=== PATIENT | female | born 1970 | race Caucasian/White ===

== ENCOUNTER → 2019-09-09 11:30 | Outpatient (BNVA) | payer BC, SELFPAY | PROVIDERS: Family Provider Nurse Practitioner Family; PCP Nurse Practitioner Family; Visit Provider Nurse Practitioner Family | DX: I10 Essential (primary) hypertension (principal); R53.83 Other fatigue; E78.2 Mixed hyperlipidemia; Z79.899 Other long term (current) drug therapy; D64.9 Anemia, unspecified; E55.9 Vitamin D deficiency, unspecified | CPT/HCPCS: 80053; 80061; 81001; 82607; 82728; 83036; 83540; 83735; 84439; 84443; 84481; 85025 ==

== ENCOUNTER → 2020-06-24 15:16 | Outpatient (BNVA) | payer BC, SELFPAY | PROVIDERS: Family Provider Nurse Practitioner Family; PCP Nurse Practitioner Family; Visit Provider Nurse Practitioner Family | DX: Z11.59 Encounter for screening for other viral diseases (principal) | CPT/HCPCS: 87635 ==

== ENCOUNTER → 2021-07-05 09:48 | Outpatient (BNVA) | payer SELFPAY | PROVIDERS: Family Provider Nurse Practitioner Family; PCP Nurse Practitioner Family; Visit Provider Family Medicine | DX: R68.89 Other general symptoms and signs (principal); Z20.822 Contact with and (suspected) exposure to COVID-19 | CPT/HCPCS: 87400; 87635 ==

== ENCOUNTER 2021-08-28 12:07 | Emergency (ER) | payer SELFPAY ==
[2021-08-28 12:14] VITALS: BP 160/99; PULSE 79; RESP 18; TEMP 36.6; O2SAT 98; BMI 33.5
--- NOTE | 2021-08-28 12:34 | XRR_ITS ---
PROCEDURE INFORMATION: Exam: XR Chest Exam date and time: 08/28/2021 12:34 PM Age: 51 years old Clinical indication: Chest pressure; Chest pain TECHNIQUE: Imaging protocol: XR of the chest. Views: 1 view. COMPARISON: CR Chest 1 [place] [id number] 05/15/2016 10:13 PM FINDINGS: Lungs: No pulmonary vascular congestion, pulmonary edema or pneumonia. Pleural spaces: No pleural effusion or pneumothorax. Heart/Mediastinum: The cardiac silhouette is not enlarged. The mediastinal contours are normal. Bones/joints: There is a curvature of the thoracic spine convex to the right. Soft tissues: Small bilateral epicardial fat pads. XR/XR chest 1V portable [id number] IMPRESSION: No acute finding.
--- NOTE | 2021-08-28 12:34 | ECG_ITS ---
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 Measurements Intervals [place] Rate: 72 P: 75 [place]: 156 QRS: 64 QRSD: 89 T: 68 QT: 378 QTc: 415 Interpretive Statements SINUS RHYTHM LOW QRS VOLTAGE [QRS DEFLECTION < 0.5/1.0 mV IN LIMB/CHEST LEADS] No previous ECG available for comparison Electronically Signed On 08-28-2021 20:21:02 HOME RESTORATION SERVICE CLEANER by Lyssa Faust M.D. [id number]
[2021-08-28 12:59] VITALS: BP 159/101; PULSE 68; PULSE 69; RESP 20; O2SAT 97
--- NOTE | 2021-08-28 12:59 | W.ED.CHESTPA ---
HPI - Chest Pain General: Chief Complaint: Chest Pain Stated Complaint: HBP, Body aches all over, dizziness Time Seen by Provider: 08/28/21 12:33 Source: patient Mode of arrival: ambulatory Limitations: no limitations History of Present Illness: HPI narrative: 51-year-old female complaining of intermittent chest pain for 1 month: Sometimes radiating through to her back, sharp, worse with inspiration. Her blood pressures have been running higher than usual over the past week as well. Subjective body aches, fever, dizziness for the past 5 to 7 days. No known sick contacts. Has been vaccinated for Covid. complaint: chest pain Onset (ago): month(s) Timing of current episode: episodic Associated symptoms: Reports fever(s); Deny dyspnea, nausea, palpitations or vomiting Review of Systems General: Reports: 10 or more systems reviewed and unremarkable except in HPI and below Const: Reports: fever(s), chills, body aches and fatigue Eyes: Denies: change in vision, blurry vision or blind spots ENMT: Denies: throat pain, enlarged tonsils or odynophagia Card: Reports: chest pain; Denies: palpitations or irregular heart rhythm Resp: Reports: non-productive cough and pain on inspiration; Denies: dyspnea, productive cough or wheezing GI: Denies: nausea or vomiting : Denies: difficulty voiding, dysuria or oliguria Musc: Denies: joint swelling, joint redness or joint warmth Skin/Breast: Denies: rash, pruritus or erythema Neuro: Reports: headache(s) and dizziness; Denies: numbness in extremities, weakness in extremities or vertigo Psych: Denies: anxiety Endo: Denies: polyuria, polydipsia or tired all the time PFSH ED PFSH: Medical History Anxiety and depression Environmental and seasonal allergies GERD (gastroesophageal reflux disease) History of CVA (cerebrovascular accident) Hypertension Surgical History History of spinal fusion S/P appendectomy S/P cholecystectomy Social History Smoking and tobacco status: current every day smoker Quit status (tobacco): not considering quitting Second hand smoke exposure: No Smoking risk assessment/counseling performed?: Yes Alcohol intake: never Desire information about alcohol rehabilitation?: No Counseling given: No Desire information about substance/drug rehabilitation?: No Counseling given: No Physical Exam Const: COMMON NORMALS: no acute distress, average body habitus, patient oriented x3, no limitations and alert GENERAL APPEARANCE: not ill appearing and not frail appearing HENMT: COMMON NORMALS: normocephalic and atraumatic HEAD & SCALP: normocephalic and atraumatic FACE & SINUS: normal facial exam and face symmetric Eye: COMMON NORMALS: Equal, round and reactive pupils present, EOMs intact bilaterally, conjunctivae normal and no scleral icterus CONJUNCTIVA: Yes conjunctivae normal PUPIL: Yes Equal, round and reactive pupils present Neck/C-Spine: COMMON NORMALS: full ROM, no lymphadenopathy and supple Chest: COMMONS NORMALS: normal inspection of the chest and normal palpation of entire chest wall Resp: COMMON NORMALS: normal respiratory effort and No retractions EFFORT & INSPECTION: Yes able to speak in complete sentences Cardio: COMMON NORMALS: regular rate and regular rhythm RATE: regular rate RHYTHM: regular rhythm Extremity: COMMON NORMALS: normal to inspection, full ROM and capillary refill normal Neuro: COMMON NORMALS: patient oriented x3, CN's II-XII intact bilaterally, moves all extremities and no focal motor deficits SENSORIUM/ORIENTATION: Yes alert Skin: COMMON NORMALS: no rashes or lesions noted, no wounds, turgor normal and no jaundice GENERAL SKIN EXAM: no rashes or lesions noted and turgor normal Course Vital Signs: Vital signs: Vital Signs Temperature 97.9 F 08/28/21 12:14 Pulse Rate 69 08/28/21 12:59 Respiratory Rate 20 H 08/28/21 12:59 Blood Pressure 159/101 08/28/21 12:59 Pulse Oximetry 97 08/28/21 12:59 MDM - Chest Pain MDM Narrative: Medical decision making narrative: 51-year-old female with flulike symptoms for the past week. CBC and chemistry normal. UA clear. No acute infiltrates on chest x-ray. Intermittent vague chest pain for 1 month; baseline troponin <6, D-dimer wnl Covid PCR pending, will call with results. Tylenol as needed for symptoms Avoid ibuprofen as it decreases efficacy of losartan Differential Diagnosis: Cardiac arrest differential diagnosis: Likely acute massive pulmonary embolism, acute respiratory failure and acute myocardial infarction Medical Records: Attestation: I reviewed the patient's medical records. Lab Data: Labs: Lab Results 08/28/21 08/28/21 08/28/21 12:55 12:55 12:55 WBC 6.1 10^3/uL 10^3/ uL (4.0-10.0) RBC 4.23 10^6/uL 10^6 /uL (4.1-5.3) Hgb 13.0 g/dL g/dL (11.5-15.3) Hct 39.6 % % (37.0-47.0) MCV 93.6 fl fl (81-99) MCH 30.7 pg pg (28.0-34.0) MCHC 32.8 g/dL g/dL (30.0-36.0) RDW 13.2 % % (12.1-15.1) Plt Count 181 10^3/cmm 10^3 /cmm (130-400) MPV 12.6 fL H fL (7.4-10.4) Neut % (Auto) 62.3 % % Lymph % (Auto) 27.3 % % [place] % (Auto) 6.4 % % Eos % (Auto) 3.0 % % Baso % (Auto) 0.7 % % Neut # (Auto) 3.80 10^3/uL 10^3 /uL (1.8-7.7) Lymph # (Auto) 1.7 10^3/uL 10^3/ uL (0.8-4.8) [place] # (Auto) 0.4 10^3/uL 10^3/ uL (0.2-0.9) Eos # (Auto) 0.2 10^3/uL 10^3/ uL (0.0-0.8) Baso # (Auto) 0.0 10^3/uL 10^3/ uL (0.0-0.1) Nucleated RBC % (a uto) 0 % % Nucleated RBCs # 0.0 /100WBC /100W BC D-Dimer 0.38 ug/mIFEU ug/ mIFEU (0-0.59) Sodium 139 mmol/L mmol/L (136-145) Potassium 4.0 mmol/L mmol/L (3.5-5.1) Chloride 103 mmol/L mmol/L (98-107) Carbon Dioxide 24 mmol/L mmol/L (22-29) Anion Gap 16.0 (5-19) BUN 12 mg/dL mg/dL (6-20) Creatinine 0.5 mg/dL mg/dL (0.5-0.9) GFR Calculation 129.1 mL/min mL/m in (90-130) Glucose 92 mg/dL mg/dL (65-115) Calculated Osmolal ity 287 mOsm/kg mOsm/ kg (285-295) Calcium 8.3 mg/dL L mg/dL (8.5-10.5) Total Bilirubin 0.4 mg/dL mg/dL (0.15-1.2) AST 14 U/L U/L (0-32) ALT 15 U/L U/L (0-33) Alkaline Phosphata se 114 IU/L H IU/L (35-105) Troponin T Gen 5 n g/L C-Reactive Protein 12.1 mg/L H mg/L (0.0-4.9) NT-Pro-B Natriuret Pep 178 pg/mL H pg/mL (0-125) Total Protein 7.0 g/dL g/dL (6.6-8.7) Albumin 4.2 g/dL g/dL (3.5-5.2) Globulin 2.8 g/dL g/dL (1.3-4.6) Urine Color Urine Appearance Urine pH Ur Specific Gravit y Urine Protein Urine Glucose (UA) Urine Ketones Urine Blood Urine Nitrate Urine Bilirubin Urine Urobilinogen Ur Leukocyte Teresa ase 08/28/21 08/28/21 12:55 13:40 WBC RBC Hgb Hct MCV MCH MCHC RDW Plt Count MPV Neut % (Auto) Lymph % (Auto) [place] % (Auto) Eos % (Auto) Baso % (Auto) Neut # (Auto) Lymph # (Auto) [place] # (Auto) Eos # (Auto) Baso # (Auto) Nucleated RBC % (a uto) Nucleated RBCs # D-Dimer Sodium Potassium Chloride Carbon Dioxide Anion Gap BUN Creatinine GFR Calculation Glucose Calculated Osmolal ity Calcium Total Bilirubin AST ALT Alkaline Phosphata se Troponin T Gen 5 n g/L 6 ng/L ng/L (0-10) C-Reactive Protein NT-Pro-B Natriuret Pep Total Protein Albumin Globulin Urine Color Yellow (Yellow) Urine Appearance Clear (CLEAR) Urine pH 7 (5-7) Ur Specific Gravit y 1.010 (1.005-1.030) Urine Protein Neg (Negative) Urine Glucose (UA) Norm (Normal) Urine Ketones Negative (Negative) Urine Blood Neg (Negative) Urine Nitrate Negative (Negative) Urine Bilirubin Neg (Negative) Urine Urobilinogen Norm mg/dL mg/dL (Negative) Ur Leukocyte Teresa ase Negative (Negative) Imaging Data^: CXR: Attestation: I personally reviewed and interpreted this imaging study as follows: Discharge Plan Discharge Patient Disposition: Home Clinical Impression: Upper respiratory infection, viral, Flu-like symptoms Hypertension Qualifiers: Hypertension type: unspecified Qualified Code(s): I10 - Essential (primary) hypertension Condition: Stable Prescriptions: No Action fluticasone propionate [Flonase Allergy Relief] 50 mcg/actuation spray,suspension 1 spray INTRANASAL DAILY 30 Days Qty: 15.8 RF: 2 albuterol sulfate 90 mcg/actuation HFA aerosol inhaler 1 inh inhalation QID PRN (Reason: shortness of breath or wheezing) Qty: 8.5 RF: 0 fluticasone propion-salmeterol [Advair Diskus] 100-50 mcg/dose blister with device 1 inh inhalation Q12H Qty: 60 RF: 0 carvedilol 6.25 mg tablet See Rx Instructions .ROUTE .COMPLEX 90 Days Qty: 180 RF: 0 paroxetine HCl 20 mg tablet 20 mg PO DAILY 90 Days Qty: 90 RF: 1 losartan 50 mg tablet See Rx Instructions .ROUTE .COMPLEX Qty: 30 RF: 2 Discharge Orders: Discharge ED (Routine); Ordered 08/28/21 Ordered By: Varsha Tran Referrals: JOHNIE Dueñas, COLLEGE ATHLETIC DIRECTOR [Primary Care Provider] - Discharge Diet: Advance as tolerated Discharge Activity: Increase activity as tolerated Patient Instructions: Viral Syndrome - Adult Activity Restrictions/Additional Instructions: Rest, drink plenty of fluids, take [id number] Tylenol for body aches and headache. Follow-up with your primary care doctor in the next 3 to 4 days for recheck. Avoid taking ibuprofen as it could interfere with your blood pressure medication and cause your blood pressures to run high. Coding Level of Care Code ED Social Science Manager for Migdalia Ernst
[2021-08-28 13:06] LABS: Basophils % 0.7 %; Eosinophils # 0.2 10^3/uL (0.0-0.8); Hematocrit 39.6 % (37.0-47.0); Lymphocytes # 1.7 10^3/uL (0.8-4.8); Lymphocytes % 27.3 %; Mean Corpuscular HGB Conc 32.8 g/dL (30.0-36.0); Mean Corpuscular Hemoglobin 30.7 pg (28.0-34.0); Mean Corpuscular Volume 93.6 fl (81-99); Mean Platelet Volume 12.6 fL (7.4-10.4); Monocytes # 0.4 10^3/uL (0.2-0.9); Monocytes % 6.4 %; Neutrophils % 62.3 %; Nucleated Red Blood Cells % 0 %; Platelet Count 181 10^3/cmm (130-400); Red Blood Count 4.23 10^6/uL (4.1-5.3); Red Cell Distribution Width 13.2 % (12.1-15.1); White Blood Count 6.1 10^3/uL (4.0-10.0)
[2021-08-28 13:24] LABS: Troponin T (5th) Once 6 ng/L (0-10)
[2021-08-28 13:32] LABS: Alanine Aminotransferase 15 U/L (0-33); Albumin Level 4.2 g/dL (3.5-5.2); Alkaline Phosphatase 114 IU/L (35-105); Aspartate Amino Transferase 14 U/L (0-32); Blood Urea Nitrogen 12 mg/dL (6-20); C Reactive Protein 12.1 mg/L (0.0-4.9); Calcium 8.3 mg/dL (8.5-10.5); Carbon Dioxide 24 mmol/L (22-29); Chloride 103 mmol/L (98-107); Creatinine Clr Calc Pharmacy 150.4603; Globulin 2.8 g/dL (1.3-4.6); Glomerular Filtration Rate 129.1 mL/min (90-130); Glucose 92 mg/dL (65-115); NT Pro B Type Natriuretic Pept 178 pg/mL (0-125); Osmolality Calculated 287 mOsm/kg (285-295); Sodium 139 mmol/L (136-145); Total Bilirubin 0.4 mg/dL (0.15-1.2)
[2021-08-28 13:45] LABS: Add Urine Microscopic? NO; Charge for UA Resulting for Rev
[2021-08-28 13:57] LABS: Bilirubin Urine Neg (Negative); Blood Urine Neg (Negative); Glucose Urine UA Norm (Normal); Ketones Urine Negative (Negative); Leukocyte Esterase Urine Negative (Negative); Nitrate Urine Negative (Negative); Protein Urine Neg (Negative); Urine Appearance Clear (CLEAR); Urine Color Yellow (Yellow); Urobilinogen Urine Norm (Negative); pH Urine 7 (5-7)
[2021-08-28 14:05] LABS: D Dimer 0.38 ug/mIFEU (0-0.59)
[2021-08-28 16:36] LABS: Adenovirus Not Detected (NOT DETECT); Chlamydia Pneumoniae Not Detected (NOT DETECT); Coronavirus 229E,HKU1,NL63,OC4 Not Detected (NOT DETECT); Human Metapneumovirus Not Detected (NOT DETECT); Human Rhinovirus/Enterovirus Not Detected (NOT DETECT); Influenza A Not Detected (NOT DETECT); Influenza A H1 Not Detected (NOT DETECT); Influenza A H1-2009 Not Detected (NOT DETECT); Influenza A H3 Not Detected (NOT DETECT); Influenza B Not Detected (NOT DETECT); Mycoplasma Pneumoniae Not Detected (NOT DETECT); Parainfluenza Virus Type 1 Not Detected (NOT DETECT); Parainfluenza Virus Type 2 Not Detected (NOT DETECT); Parainfluenza Virus Type 3 Not Detected (NOT DETECT); Parainfluenza Virus Type 4 Not Detected (NOT DETECT); Respiratory Syncytial Virus A Not Detected (NOT DETECT); Respiratory Syncytial Virus B Not Detected (NOT DETECT); SARS-COV-2 Not Detected (NOT DETECT)
== END 2021-08-28 15:21 | disposition home or self-care (01) ==
PROVIDERS: Emergency Provider Family Medicine; PCP Nurse Practitioner Family
DX: J06.9 Acute upper respiratory infection, unspecified (principal); Z86.73 Personal history of transient ischemic attack (TIA), and cerebral infarction without residual deficits; I10 Essential (primary) hypertension; F17.210 Nicotine dependence, cigarettes, uncomplicated; Z20.822 Contact with and (suspected) exposure to COVID-19
CPT/HCPCS: 71045; 80053; 81003; 83880; 84484; 85025; 85378; 86140; 87635; 93005; 99284; 99291

== ENCOUNTER 2022-01-06 12:06 | Observation (INO) | payer SELFPAY ==
[2022-01-06] VITALS (9 sets, daily range): BP systolic 120–164; BP diastolic 78–104; PULSE 72–85; RESP 7–19; O2SAT 91–97; BMI 31.8
--- NOTE | 2022-01-06 12:47 | ECG_ITS ---
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 Measurements Intervals [place] Rate: 82 P: 58 IA: 154 QRS: 35 QRSD: 85 T: 42 QT: 347 QTc: 407 Interpretive Statements SINUS RHYTHM LOW QRS VOLTAGE IN PRECORDIAL LEADS [QRS DEFLECTION < 1.0 mV IN CHEST LEADS] Compared to ECG 08/28/2021 12:24:39 No significant changes Electronically Signed On 01-06-2022 20:41:58 CDT by Lex Luo M.D. [id number]
--- NOTE | 2022-01-06 12:47 | CT_ITS ---
WS: [id number] CT HEAD NONCONTRAST HISTORY: Symptoms of Acute Stroke TECHNIQUE: Contiguous axial imaging performed through the brain in 2.5 mm imaging. Bone and soft tiss ue windows. Sagittal and coronal reformats reviewed. All CT scans at [facility] use at least one of these dose optimization techniques: automated exposure control; mA and/or kV adjustment per pa tient size (includes targeted exams where dose is matched to clinical indication); or iterative recon struction. DLP: 929.44 mGy-cm. COMPARISON: 05/15/2016 No acute intracranial hemorrhage, midline shift or mass effect. No atrophy or prior infarcts or herniation. Ventricles: Normal size with no hydrocephalus. No inferior displacement of cerebellar tonsils. Paranasal sinuses: Mucoperiosteal thickening extends in the LEFT sphenoid sinus. No air-fluid levels. Mastoid air cells: Well pneumatized. Calvarium and scalp: Skull is intact with no soft tissue edema or swelling. CT/CT head wo con* [id number] IMPRESSION: 1. Negative noncontrast head CT. No edema or hemorrhage. 2. LEFT sphenoid sinus disease.
--- NOTE | 2022-01-06 12:49 | USCV_ITS ---
Chacharodrigo Herlinda Age: 51 Gender: F : 1970 Exam Date: 01/06/2022 14:15 Ordering Phys: Yeyo Carrion DO Technologist: SARAHY Exam Location: [facility] Indication: cva Risk Factors: Previous Vascular Surgery: Right Brachial BP: / Left Brachial BP: / Right Left Velocity (cm/s) Spectral Plaque Velocity (cm/s) Spectral Plaque Syst/Diast Broadening Syst/Diast Broadening 100.30/25.40 Prox CCA 105.80/ 27.60 95.90/ 29.80 Mid CCA 106.90/ 29.80 81.60/ 26.40 Distal CCA 79.50 / 28.20 77.20/ 27.10 Prox ICA 68.40 / 10.30 75.40/ 27.20 Mid ICA 74.70 / 31.20 69.90/ 25.60 Distal ICA 60.40 / 28.50 91.40 ECA 74.30 0.77 ICA/CCA 0.70 Antegrade Vertebral Antegrade 88.60/ 25.60 cm/s 61.50/ 28.20 cm/s Tri Subclavian Tri 167.0 130.4 0 0 FINDINGS Comparison:. 03/21/16. Mild bilateral atherosclerotic plaque. No significant elevation of systolic or diastolic velocities. Waveforms are normal. Antegrade vertebral arteries. CONCLUSIONS Bilateral ICA stenosis less than 50%. Mild carotid atherosclerosis. Dr. Soraya Horowitz DO (Electronically Signed) Final Date: 06 Jan 2022 16:36 S
--- NOTE | 2022-01-06 12:52 | ED_ITS ---
HPI - Neuro Symptoms/Deficit General: Chief Complaint: Neuro Symptoms/Deficit Stated Complaint: whole left side hurting, hand numbness Time Seen by Provider: 01/06/22 12:45 Source: patient Mode of arrival: ambulatory Limitations: no limitations History of Present Illness: 51-year-old female comes in complaining of left arm leg and face numbness with facial drooping. States she has had the symptoms for the last 2 days. She initially told the triage nurse she has had them for 2 days and reiterated the same to me. She told another nurse that there had been more stagger during the onset when I went back and requestioned her. She said the arm has been for a couple of days the leg has been off and on for a couple of days but the facial drooping has been just 1 hour. She denies any difficulty with speech. 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 Looking back through her chart she had a CT of her head in the fall 2015 also there is work-up that looks like for an embolic source including an echocardiogram and a carotid duplex no significant findings were made at that time there is no MRI on the chart the CT done and did not show any old strokes or anything new. Onset (ago): hour(s) Location: left face, left arm and left leg Severity: mild Quality: weak and numb Relieving factors: none Exacerbating factors: none Context: gradual onset On Anticoagulants: No Associated symptoms: Deny chest pain, cough, diaphoresis, fevers/chills, headache(s), anorexia, malaise, nausea, seizures, short of breath, syncope, tingling, vomiting or weakness Treatments Prior to Arrival: none Review of Systems Const: Denies: fever(s), chills, body aches, malaise or diaphoresis ENMT: Denies: throat pain, ear or mastoid pain, nasal discharge or nasal congestion Card: Denies: chest pain, palpitations, irregular heart rhythm or syncope Resp: Denies: dyspnea, productive cough or non-productive cough GI: Denies: abdominal pain, nausea or vomiting : Denies: flank pain, difficulty voiding, dysuria, urinary frequency or urinary urgency Skin/Breast: Denies: rash or pruritus Neuro: Denies: headache(s) PFSH ED PFSH: Medical History Anxiety and depression Environmental and seasonal allergies GERD (gastroesophageal reflux disease) History of CVA (cerebrovascular accident) Hypertension Surgical History History of spinal fusion S/P appendectomy S/P cholecystectomy Family History Mother Thyroid disease Cancer Social History Smoking and tobacco status: current every day smoker Quit status (tobacco): not considering quitting Second hand smoke exposure: No Smoking risk assessment/counseling performed?: Yes Alcohol intake: never Desire information about alcohol rehabilitation?: No Counseling given: No Desire information about substance/drug rehabilitation?: No Counseling given: No NIH stroke score NIHSS: Level Of Consciousness - 1a: 0 Level Of Consciousness Questions - 1b: Both Correct Level Of Consciousness Commands - 1c: Both Correct Best Gaze - 2: Normal Visual Winn - 3: No Visual Loss Facial Palsy - 4: Minor Paralysis Motor Arm Right - 5: No Drift Motor Arm Left - 5: Drift Motor Leg Right - 6: No Drift Motor Leg Left - 6: No Drift Limb Ataxia - 7: Absent Sensory - 8: Mild To Moderate Loss Best Language - 9: No Aphasia Dysarthia - 10: Normal Extinction And Inattention - 11: 0 Score: Total Score: 3 Physical Exam Const: GENERAL APPEARANCE: cooperative and comfortable ORIENTATION/CONSCIOUSNESS: Yes awake, Yes oriented to person, Yes oriented to place and Yes oriented to time HENMT: COMMON NORMALS: normocephalic, atraumatic, hearing grossly normal bilaterally, external ears normal, EAC's normal, TM's normal bilaterally, Normal nasal mucous membranes and turbinates present, moist oral mucous membranes and oropharynx normal HEAD & SCALP: normocephalic and atraumatic NOSE: Normal nasal mucous membranes and turbinates present EXTERNAL EAR: Yes external ears normal EXTERNAL AUDITORY CANAL: EAC's normal TYMPANIC MEMBRANE: TM's normal bilaterally Eye: COMMON NORMALS: Equal, round and reactive pupils present, EOMs intact bilaterally, conjunctivae normal and no scleral icterus CONJUNCTIVA: Yes conjunctivae normal PUPIL: Yes Equal, round and reactive pupils present Neck/C-Spine: COMMON NORMALS: full ROM, no lymphadenopathy, supple and no JVD Resp: COMMON NORMALS: normal respiratory effort, No retractions, No use of ac cessory muscles and clear to auscultation bilaterally AUSCULTATION: clear to auscultation bilaterally Cardio: COMMON NORMALS: no JVD, regular rate, regular rhythm and No murmurs present (Cardio) RATE: regular rate RHYTHM: regular rhythm GI: COMMON NORMALS: Soft to palpation and No hepatosplenomegaly present AUSCULTATION: Yes normoactive bowel sounds PALPATION: Yes Soft to palpation, No Tenderness to palpation present (GI), No Guarding due to palpation present (GI) and Yes No hepatosplenomegaly present Extremity: COMMON NORMALS: normal to inspection, capillary refill normal, no clubbing, cyanosis or edema, no calf tenderness and no pedal edema Neuro: SENSORIUM/ORIENTATION: Yes oriented to person, Yes oriented to place and Yes oriented to time Skin: COMMON NORMALS: no rashes or lesions noted GENERAL SKIN EXAM: no rashes or lesions noted Course Vital Signs: Vital signs: Vital Signs Temperature 98 F 01/07/22 10:15 Pulse Rate 72 01/07/22 10:15 Respiratory Rate 18 01/07/22 10:15 Blood Pressure 139/90 01/07/22 10:15 Pulse Oximetry 92 01/07/22 10:15 MDM - Neuro Symptoms/Deficit Medical Decision Making CVA versus TIA. The left leg pain seems to be a separate type issue. She is not a candidate at this point for tPA we consulted neurology they advised against. Will admit to evaluate for secondary prevention as well as therapy. Discussed with hospitalist orders written Medical Records I reviewed the patient's medical records. Lab Data I reviewed the patient's lab results. : 01/07/22 05:45 01/06/22 13:[address] 01/06/22 12:47 IMPRESSION: 1. Negative noncontrast head CT. No edema or hemorrhage. 2. LEFT sphenoid sinus disease. Head MRI 01/06/22 16:30 IMPRESSION: No acute ischemia. Head/Neck CTA 01/06/22 16:30 IMPRESSION: No large vessel stenosis or occlusion. IMPRESSION: Mild stenosis at the origin of the left internal carotid artery with less than 50% luminal narrowing. No significant stenosis or occlusion. REFERENCES: NASCET CRITERIA. The degree of internal carotid artery stenosis is based on NASCET criteria. Normal is no stenosis. Mild is less than 50% stenosis. Moderate is 50-69% stenosis. Severe is 70% to 99% stenosis. Total occlusion is no detectable patent lumen. Laboratory Results WBC 6.9 10^3/uL (4.0-10.0) 01/06/22 13: RBC 4.39 10^6/uL (4.1-5.3) 01/06/22 13:21 Hgb 13.8 g/dL (11.5-15.3) 01/06/22 13:21 Hct 41.7 % (37.0-47.0) 01/06/22 13: MCV 95.0 fl (81-99) 01/06/22 13:21 MCH 31.4 pg (28.0-34.0) 01/06/22 13: MCHC 33.1 g/dL (30.0-36.0) 01/06/22 13: RDW 14.1 % (12.1-15.1) 01/06/22 13:21 Plt Count 185 10^3/cmm (130-400) 01/06/22 13:21 MPV 13.4 fL (7.4-10.4) H 01/06/22 13:21 Neut % (Auto) 65.4 % 01/06/22 13:21 Lymph % (Auto) 24.7 % 01/06/22 13:21 [place] % (Auto) 6.3 % 01/06/22 13: Eos % (Auto) 2.8 % 01/06/22 13:21 Baso % (Auto) 0.7 % 01/06/22 13:21 Neut # (Auto) 4.48 10^3/uL (1.8-7.7) 01/06/22 13: Lymph # (Auto) 1.7 10^3/uL (0.8-4.8) 01/06/22 13:21 [place] # (Auto) 0.4 10^3/uL (0.2-0.9) 01/06/22 13:21 Eos # (Auto) 0.2 10^3/uL (0.0-0.8) 01/06/22 13:21 Baso # (Auto) 0.1 10^3/uL (0.0-0.1) 01/06/22 13:21 Nucleated RBC % (auto) 0 % 01/06/22 13:21 Nucleated RBCs # 0.0 /100WBC 01/06/22 13:21 PT 12.70 SECONDS (12.1-14.9) 01/06/22 13:21 INR 0.92 (0.8-1.2) 01/06/22 13:21 APTT 26.0 SECONDS (23.9-36.7) 01/06/22 13:21 Sodium 138 mmol/L (136-145) 01/06/22 13:21 Potassium 4.0 mmol/L (3.5-5.1) 01/06/22 13:21 Chloride 101 mmol/L (98-107) 01/06/22 13:21 Carbon Dioxide 27 mmol/L (22-29) 01/06/22 13:21 Anion Gap 14.0 (5-19) 01/06/22 13:21 BUN 13 mg/dL (6-20) 01/06/22 13:21 Creatinine 0.7 mg/dL (0.5-0.9) 01/06/22 13:21 GFR Calculation 87.5 mL/min (90-130) L 01/06/22 13:21 Glucose 91 mg/dL (65-115) 01/06/22 13:21 POC Glucose 90 mg/dL (70-110) 01/06/22 13:26 Calculated Osmolality 286 mOsm/kg (285-295) 01/06/22 13:21 Calcium 9.5 mg/dL (8.5-10.5) 01/06/22 13:21 Total Bilirubin 0.4 mg/dL (0.15-1.2) 01/06/22 13:21 AST 25 U/L (0-32) 01/06/22 13:21 ALT 38 U/L (0-33) H 01/06/22 13:21 Alkaline Phosphatase 103 IU/L (35-105) 01/06/22 13:21 Total Protein 8.0 g/dL (6.6-8.7) 01/06/22 13:21 Albumin 4.9 g/dL (3.5-5.2) 01/06/22 13:21 Globulin 3.1 g/dL (1.3-4.6) 01/06/22 13:21 Discharge Plan Discharge Patient Disposition: Home Admit Provider: Nathan Curtis Clinical Impression: Cerebrovascular accident, Hypertension, Hyperlipidemia Condition: Stable Discharge Orders: Discharge Order (Routine); Ordered 01/07/22 Ordered By: Nathan Curtis Coding Level of Care Code ED Silver Plater for Chg Fwd Exam Comprehensive
[2022-01-06 13:33] LABS: Basophils # 0.1 10^3/uL (0.0-0.1); Basophils % 0.7 %; Eosinophils # 0.2 10^3/uL (0.0-0.8); Eosinophils % 2.8 %; Hematocrit 41.7 % (37.0-47.0); Hemoglobin 13.8 g/dL (11.5-15.3); Lymphocytes # 1.7 10^3/uL (0.8-4.8); Lymphocytes % 24.7 %; Mean Corpuscular HGB Conc 33.1 g/dL (30.0-36.0); Mean Corpuscular Hemoglobin 31.4 pg (28.0-34.0); Mean Platelet Volume 13.4 fL (7.4-10.4); Monocytes # 0.4 10^3/uL (0.2-0.9); Monocytes % 6.3 %; Neutrophils # 4.48 10^3/uL (1.8-7.7); Neutrophils % 65.4 %; Nucleated Red Blood Cells % 0 %; Platelet Count 185 10^3/cmm (130-400); Red Blood Count 4.39 10^6/uL (4.1-5.3); Red Cell Distribution Width 14.1 % (12.1-15.1); White Blood Count 6.9 10^3/uL (4.0-10.0)
--- NOTE | 2022-01-06 13:38 | PC.NURSE ---
Pt placed on continuous cardiac, BP, and SpO2 monitoring.
[2022-01-06 13:39] LABS: INR 0.92 (0.8-1.2)
[2022-01-06 13:49] LABS: Alanine Aminotransferase 38 U/L (0-33); Albumin Level 4.9 g/dL (3.5-5.2); Alkaline Phosphatase 103 IU/L (35-105); Aspartate Amino Transferase 25 U/L (0-32); Blood Urea Nitrogen 13 mg/dL (6-20); Calcium 9.5 mg/dL (8.5-10.5); Carbon Dioxide 27 mmol/L (22-29); Chloride 101 mmol/L (98-107); Globulin 3.1 g/dL (1.3-4.6); Glomerular Filtration Rate 87.5 mL/min (90-130); Glucose 91 mg/dL (65-115); Osmolality Calculated 286 mOsm/kg (285-295); Sodium 138 mmol/L (136-145); Total Bilirubin 0.4 mg/dL (0.15-1.2)
[2022-01-06 14:08] LABS: Slide Review Slide Review Perform
--- NOTE | 2022-01-06 15:56 | PM.HP ---
Providers/Chief Complaint Admitting Physician: Nathan Curtis Primary Care Provider: JOSIAH Campos Chief Complaint: whole left side hurting, hand numbness History of Present Illness Herlinda Israel is a 51 year old female with a past medical history significant for TIA/CVA x4, anxiety, depression, lumbar spinal fusion, hypertension, and tobacco use disorder who presents to the emergency department with strokelike symptoms. Patient reports that she was in her usual state of health until about 2 days ago, when she developed left leg pain. She describes the pain as beginning around her hip and shooting down to her feet. She reports she initially attributed the pain to her shoes as the pain seemed to worsen when she walked. She does endorse a history of a lumbar spinal fusion. She states symptoms progressed to include left arm and hand weakness and numbness occurring in the prior day. She reports he came into [place] today to obtain new shoes, and she developed decreased vision in her left eye, facial droop, and confusion described as mental fog. Denies dysarthria or right-sided weakness. Reports some abnormal gait due to left leg pain. These symptoms prompted them to be evaluated emergency department. Patient endorses a history of 4 prior TIA/CVA. She reports the first 1 was age 17 during . She states that she required ICU level care at that time. She states that she had to complete therapy to relearn to use her facial muscles. She reports the most recent TIA was about 3 months ago. Prior to that, she was worked up in 2016 with a plain head CT which showed no CT evidence of acute intracranial pathology. She denies prior head MRI. Denies prior history of atrial fibrillation. She does endorse some chest pains in the past for which she was provided nitro as needed. Denies family history of known strokes. She reports that she continues to smoke. Reports half a pack per day. She reports she thinks about quitting at times. She states that she is been able to quit before for about a year. At that time, she used the cold turkey method. She states she went back to smoking due to stress. She endorses active cravings right now. Smoking cessation discussed. Discussed harmful effects on her health. Discussed treatment options including nicotine replacement and patient is agreeable to trying a patch. In the emergency department, patient was found to have left-sided weakness and facial droop. Noncontrast head CT was negative for edema or hemorrhage. Neurology was reportedly consulted and recommended against tPA. Review of Systems Narrative: A complete review of systems was obtained and is negative except as stated in HPI. Medications/Allergies Home Medications Medication Instructions Recorded Confirmed Last Taken Type albuterol sulfate 90 mcg/actuation 1 inh INHALATION QID PRN #8.5 g 07/05/21 01/06/22 Unknown Rx aerosol inhaler aspirin 81 mg tablet,delayed 81 mg PO DAILY 30 Days #30 tab 11/22/21 01/06/22 01/06/22 Rx release atorvastatin 40 mg tablet 40 mg PO DAILY 30 Days #30 tab 11/22/21 01/06/22 01/06/22 Rx carvedilol 6.25 mg tablet See Rx Instructions .ROUTE 12/06/21 01/06/22 01/06/22 Rx .COMPLEX #60 tab paroxetine HCl 20 mg tablet See Rx Instructions .ROUTE 12/20/21 01/06/22 01/06/22 Rx .COMPLEX #90 tab nitroglycerin 0.4 mg sublingual See Rx Instructions .ROUTE 01/04/22 01/06/22 Unknown Rx tablet .COMPLEX #30 tab loratadine 10 mg tablet (Claritin) 10 mg PO DAILY 01/06/22 01/06/22 01/06/22 History losartan 50 mg tablet 50 mg PO BID 01/06/22 01/06/22 01/06/22 History magnesium 30 mg tablet 30 mg PO DAILY 01/06/22 01/06/22 01/06/22 History Allergies Allergy/AdvReac Type Severity Reaction Status Date / Time codeine Allergy anaphylaxis Verified 10/25/21 08:43 estradiol Allergy dizziness Verified 10/25/21 08:43 lisinopril Allergy cough and Verified 10/25/21 08:43 hypotension Penicillins Allergy anaphylaxis Verified 10/25/21 08:43 progesterone Allergy dizziness Verified 10/25/21 08:43 tramadol Allergy anaphylaxis Verified 10/25/21 08:43 PFSH Acute PFSH: Medical History Anxiety and depression Environmental and seasonal allergies GERD (gastroesophageal reflux disease) History of CVA (cerebrovascular accident) Hypertension Surgical History History of spinal fusion S/P appendectomy S/P cholecystectomy Family History (Updated 01/06/22 @ 16:08 by Nathan Curtis MD) Mother Thyroid disease Cancer Social History Smoking and tobacco status: current every day smoker Quit status (tobacco): not considering quitting Second hand smoke exposure: No Smoking risk assessment/counseling performed?: Yes Alcohol intake: never Desire information about alcohol rehabilitation?: No Counseling given: No Desire information about substance/drug rehabilitation?: No Counseling given: No Vitals/I&O/Wt Last Vital Signs Pulse 84 01/06/22 12:16 Resp 18 01/06/22 12:16 BP 164/104 01/06/22 12:16 Pulse Ox 97 01/06/22 12:16 Weight last 48 hrs Weight 89.358 kg Physical Exam Narrative: General: Patient is awake and alert. Pleasant. Head: Atraumatic. EOM intact. Facial droop is present. Neck: No JVD. Cardiovascular: RRR. No gallops. No murmurs. No peripheral edema. Hypertensive. Lungs: Clear to auscultation, no use of accessory muscles, no crackles or wheezes. Skin: No jaundice. No rashes. Abdomen: Normal bowel sounds, abdomen soft and nontender. Extremeties: No cyanosis or clubbing. Musculoskeletal: No swollen or erythematous joints. Neurological: Vision grossly intact. Extraocular movements intact. Tongue protrudes midline. There is facial droop present exacerbated by blowing out the cheeks. Symmetrical eyebrow raise. Shrug equal and intact. Head rotation equal and intact. Right-sided extremities 5 out of 5. Left lower and upper extremity 4+ out of 5. No myoclonus. Data : 01/06/22 13:21 01/06/22 13:21 CT Head: Radiologist's impression: CT HEAD NONCONTRAST HISTORY: Symptoms of Acute Stroke TECHNIQUE: Contiguous axial imaging performed through the brain in 2.5 mm imaging. Bone and soft tissue windows. Sagittal and coronal reformats reviewed.? All CT scans at [facility] use at least one of these dose optimization techniques: automated exposure control; mA and/or kV adjustment per patient size (includes targeted exams where dose is matched to clinical indication); or iterative reconstruction. DLP: 929.44 mGy-cm. COMPARISON: 05/15/2016 No acute intracranial hemorrhage, midline shift or mass effect. No atrophy or prior infarcts or herniation. Ventricles:? Normal size with no hydrocephalus. No inferior displacement of cerebellar tonsils. Paranasal sinuses: Mucoperiosteal thickening extends in the LEFT sphenoid sinus. No air-fluid levels. Mastoid air cells: Well pneumatized. Calvarium and scalp: Skull is intact with no soft tissue edema or swelling. CT/CT head wo con* [id number] IMPRESSION: ? 1.? Negative noncontrast head CT. No edema or hemorrhage. 2.? LEFT sphenoid sinus disease. EKG 1: My Interpretation: Sinus rhythm EKG computer-generated impression: Head CT 01/06/22 12:47 IMPRESSION: 1. Negative noncontrast head CT. No edema or hemorrhage. 2. LEFT sphenoid sinus disease. A&P Assessment and plan (1) Stroke-like symptoms: Patient's symptoms and physical exam consistent with acute TIA versus CVA. She has a history for reported TIA/CVA without significant residual deficits prior to this episode. Her risk factors include obesity, hypertension, and tobacco use. Initial head CT negative. Neurology consulted by the ED provider recommending against tPA. Will obtain further MRI imaging to further evaluate brain parenchyma. Will obtain transthoracic echocardiogram to evaluate for PFO. We will keep on telemetry monitoring to monitor for evidence of atrial fibrillation. Patient already on low-dose aspirin and high intensity statin, will continue, in addition to Plavix. Anticipate 21 days of dual antiplatelet therapy. We will have physical and occupational therapy in addition to speech therapy evaluate patient. We will institute fall and aspiration precautions pending therapy evaluations. Status: Acute (2) Left leg pain: In the setting of prior lumbar fusion. The onset of this pain proceeded the other strokelike symptoms. It is unclear if this is a separate pathology versus secondary to TIA/CVA. The leg pain is suspicious for sciatica. We will trial low-dose Lyrica and muscle relaxant, and monitor for response to treatment. Status: Acute (3) Hypertension: Allow for permissive hypertension in the setting of TIA/CVA. Will not intervene unless markedly elevated. We will continue home Coreg. Status: Acute Qualifiers: Hypertension type: unspecified Qualified Code(s): I10 - Essential (primary) hypertension (4) Hyperlipidemia: Continue high intensity statin. Status: Acute (5) Tobacco use disorder: Tobacco cessation counseling was provided for greater than 3 minutes. She is agreeable to the nicotine patch. Status: Acute (6) Sinusitis: Continue home loratadine. Status: Acute (7) Anxiety and depression: Continue home Paxil. Status: Acute Plan DVT prophylaxis: Lovenox Attestations Medical Necessity Statement*: Patient presents with clinical TIA versus CVA, hospitalization and work-up not expected to cross 2 midnights. Coding Level of Care Code Acute Video Systems Engineer for Migdalia Ernts Diagnoses Stroke-like symptoms R29.90 Left leg pain M79.605 Hypertension I10 Hypertension type: unspecified Tobacco use disorder F17.200 Hyperlipidemia E78.5 Sinusitis J32.9 Anxiety and depression F41.9; F32.9
--- NOTE | 2022-01-06 16:30 | CTR_ITS ---
PROCEDURE INFORMATION: Exam: CT Angiography Head With Contrast, Arteriography Exam date and time: 01/06/2022 4:58 PM Age: 51 years old Clinical indication: Patient HX: C/O L sided weakness; Additional info: Stroke like symptoms, CT angiogram cervical and intracranial vessels TECHNIQUE: Imaging protocol: Computed tomography angiography of the head with contrast. Exam focused on the arteries. 3D rendering (Not supervised by radiologist): MIP and/or 3D reconstructed images were created by the technologist. Radiation optimization: All CT scans at this facility use at least one of these dose optimization techniques: automated exposure control; mA and/or kV adjustment per patient size (includes targeted exams where dose is matched to clinical indication); or iterative reconstruction. Contrast material: OMNI 350; Contrast volume: 95 ml; Contrast route: INTRAVENOUS (IV); COMPARISON: CT head wo con* [id number] 01/06/2022 12:32 PM RADIATION DOSE METRICS: Total DLP (mGy-cm): 1954.32 FINDINGS: ANTERIOR CIRCULATION: Right internal carotid artery: Unremarkable. Intracranial segment is patent with no significant stenosis. No aneurysm. Right middle cerebral artery: Unremarkable. No occlusion or significant stenosis. No aneurysm. Right anterior cerebral artery: Unremarkable. No occlusion or significant stenosis. No aneurysm. Left internal carotid artery: Unremarkable. Intracranial segment is patent with no significant stenosis. No aneurysm. Left middle cerebral artery: Unremarkable. No occlusion or significant stenosis. No aneurysm. Left anterior cerebral artery: Unremarkable. No occlusion or significant stenosis. No aneurysm. POSTERIOR CIRCULATION: Right vertebral artery: Unremarkable. No occlusion or significant stenosis. No aneurysm. Left vertebral artery: Unremarkable. No occlusion or significant stenosis. No aneurysm. Basilar artery: Unremarkable. No occlusion or significant stenosis. No aneurysm. Right posterior cerebral artery: Unremarkable. No occlusion or significant stenosis. No aneurysm. Left posterior cerebral artery: Unremarkable. No occlusion or significant stenosis. No aneurysm. Brain: No definite mass, mass effect, or midline shift. Cerebral ventricles: No ventriculomegaly. Bones/joints: Unremarkable. No acute fracture. Soft tissues: Unremarkable. PROCEDURE INFORMATION: Exam: CT Angiography Neck With Contrast Exam date and time: 01/06/2022 4:58 PM Age: 51 years old Clinical indication: Patient HX: C/O L sided weakness; Additional info: Stroke like symptoms, CT angiogram cervical and intracranial vessels TECHNIQUE: Imaging protocol: Computed tomography angiography of the neck with contrast. 3D rendering (Not supervised by radiologist): MIP and/or 3D reconstructed images were created by the technologist. Radiation optimization: All CT scans at this facility use at least one of these dose optimization techniques: automated exposure control; mA and/or kV adjustment per patient size (includes targeted exams where dose is matched to clinical indication); or iterative reconstruction. Contrast material: OMNI 350; Contrast volume: 95 ml; Contrast route: INTRAVENOUS (IV); COMPARISON: CT head wo con* [id number] 01/06/2022 12:32 PM RADIATION DOSE METRICS: Total DLP (mGy-cm): 1954.32 FINDINGS: Right common carotid artery: No stenosis. No dissection or occlusion. Right internal carotid artery: Mild stenosis at the origin of the internal carotid artery with less than 50% luminal narrowing. No dissection or occlusion. Right external carotid artery: No occlusion or stenosis of the origin. Left common carotid artery: No stenosis. No dissection or occlusion. Left internal carotid artery: No stenosis of the extracranial segment. No dissection or occlusion. Left external carotid artery: No occlusion or stenosis of the origin. Right vertebral artery: No stenosis. No dissection or occlusion. Left vertebral artery: No stenosis. No dissection or occlusion. Soft tissues: Normal. No significant soft tissue swelling. Bones/joints: No acute fracture. CT/CT angio headneck* [id number] IMPRESSION: No large vessel stenosis or occlusion. IMPRESSION: Mild stenosis at the origin of the left internal carotid artery with less than 50% luminal narrowing. No significant stenosis or occlusion. REFERENCES: NASCET CRITERIA. The degree of internal carotid artery stenosis is based on NASCET criteria. Normal is no stenosis. Mild is less than 50% stenosis. Moderate is 50-69% stenosis. Severe is 70% to 99% stenosis. Total occlusion is no detectable patent lumen.
--- NOTE | 2022-01-06 16:30 | USCV_ITS ---
Herlinda Israel Age: 51 Gender: F : 1970 Exam Date: 01/06/2022 18:40 Ordering Phys: Nathan Curtis MD Technologist: Segundo Mar Exam Location: [facility] [place] Indication: evaluate with stroke BP: 120 / 78 HR: 69 Rhythm: Sinus Technical Quality: Adequate MEASUREMENTS (Male / Female) Normal Values 2D ECHO LV Diastolic Diameter PLAX 3.3 cm 4.2 - 5.9 / 3.9 - 5.3 cm LV Systolic Diameter PLAX 2.1 cm IVS Diastolic Thickness 1.2 cm 0.6 - 1.0 / 0.6 - 0.9 cm IVS Systolic Thickness 1.4 cm LVPW Diastolic Thickness 1.5 cm 0.6 - 1.0 / 0.6 - 0.9 cm LVPW Systolic Thickness 1.9 cm LVOT Diameter 2.1 cm LV Ejection Fraction 2D Teich 64.6 % LV Ejection Fraction MOD 2C 55.9 % LV Ejection Fraction 2C AL 55.6 % LA Diameter 3.1 cm Aorta at Sinotubular Diameter 2.0 cm IVC Diameter 1.8 cm M-MODE Aortic Annulus Diameter 2.7 cm LA Ao Ratio MM 1.4 MV E Point Septal Separation 1.3 cm DOPPLER AV Peak Velocity 115.3 cm/s LVOT Peak Velocity 82.0 cm/s AV Area Cont Eq vti 2.4 cm squared AV Area Cont Eq pk 2.4 cm squared MV Area PHT 4.4 cm squared Mitral E to A Ratio 1.2 MV E' Velocity 46.0 cm/s Mitral E to MV E' Ratio 6.3 Mitral E to LV E' Lateral Ratio 5.9 Mitral E to LV E' Septal Ratio 6.8 Right Atrial Pressure 5.0 mmHg PV Peak Velocity 87.0 cm/s FINDINGS Left Ventricle Normal left ventricular size, systolic function and wall thickness, with no regional wall motion abnormalities. Left ventricular ejection fraction is estimated at 65 %. Normal diastolic function. Right Ventricle Normal right ventricular size and systolic function. RVSP could not be calculated due to incomplete tricuspid regurgitation velocity profile. Right Atrium Normal right atrial size. Left Atrium Mildly increased left atrial size. No evidence of intracardiac shunt by agitated saline/bubble study (interpretation limited by difficult study). Mitral Valve Structurally normal mitral valve. No mitral valve stenosis. No mitral valve regurgitation. Aortic Valve Probably trileaflet aortic valve. No aortic valve stenosis. Trace aortic valve regurgitation. Tricuspid Valve Structurally normal tricuspid valve. No tricuspid valve stenosis. Trace tricuspid valve regurgitation. Pulmonic Valve Pulmonic valve not well visualized. No pulmonary valve stenosis. No pulmonary valve regurgitation. Pericardium No pericardial effusion. Aorta Normal size aortic root. CONCLUSIONS 1. Normal left ventricular size, systolic function and wall thickness, with no regional wall motion abnormalities. Left ventricular ejection fraction is estimated at 65 %. Normal diastolic function. 2. Normal right ventricular size and systolic function. 3. Trace aortic valve regurgitation. 4. Mildly increased left atrial size. 5. No evidence of intracardiac shunt by agitated saline/bubble study (interpretation limited by difficult study). 6. No change when compared to study dated 05/29/2016. Jennifer Shannon MD (Electronically Signed) Final Date: 06 Jan 2022 21:01 Amended: 07 Jan 2022 20:58 C
--- NOTE | 2022-01-06 16:30 | MRR_ITS ---
PROCEDURE INFORMATION: Exam: MR Head Without Contrast Exam date and time: 01/06/2022 5:48 PM Age: 51 years old Clinical indication: Weakness, extremity; Additional info: Stroke like symptoms TECHNIQUE: Imaging protocol: MR of the head without contrast. COMPARISON: CT head wo con* [id number] 01/06/2022 12:32 PM FINDINGS: Brain: Normal. No acute infarct. No hemorrhage. No significant white matter disease. No edema. Cerebral ventricles: Normal. No ventriculomegaly. Bones/joints: Unremarkable. Paranasal sinuses: Partially fluid-filled left maxillary sinus. Mastoid air cells: Normal as visualized. No mastoid effusion. Orbital cavities: Unremarkable. Soft tissues: Unremarkable. MR/MR head wo con* [id number] IMPRESSION: No acute ischemia.
[2022-01-06] MEDS: iohexol 350 mg/mL 100 mL Btl IV (17:03)
[2022-01-06] MEDS: LORazepam 2 mg/mL INJ 1 mL 1 MG IVP (17:37)
[2022-01-06] MEDS: nicotine 14 mg Patch 1 PATCH TRANSDERMA (18:32)
[2022-01-06] MEDS: pregabalin 50 mg Capsule PO (18:33)
[2022-01-06] MEDS: carvedilol 6.25 mg Tablet PO (18:33)
[2022-01-06] MEDS: clopidogrel 300 mg Tablet PO (18:33)
[2022-01-06] MEDS: losartan 50 mg Tablet PO (18:33)
[2022-01-06] MEDS: enoxaparin 40 mg/0.4 mL Syringe SUBCUT (21:32)
[2022-01-06] MEDS: PARoxetine 20 mg Tablet PO (21:33)
[2022-01-07] VITALS (7 sets, daily range): BP systolic 123–146; BP diastolic 83–103; PULSE 72–92; RESP 13–18; TEMP 36.3–37; O2SAT 92–94
[2022-01-07 05:35] LABS: Chol HDL Ratio 2.98 mg/dL (0.0-4.40); Cholesterol 137 mg/dL (0-200); HDL Cholesterol 46 mg/dL (60-100); LDL Cholesterol Calculated 74 mg/dL (50-129); LDL HDL Ratio 1.61 RATIO (0.00-3.22); Triglycerides 85 mg/dL (0-150)
[2022-01-07 05:59] LABS: Basophils % 0.4 %; Eosinophils # 0.2 10^3/uL (0.0-0.8); Eosinophils % 2.7 %; Hematocrit 40.9 % (37.0-47.0); Hemoglobin 12.9 g/dL (11.5-15.3); Lymphocytes # 1.7 10^3/uL (0.8-4.8); Lymphocytes % 24.1 %; Mean Corpuscular HGB Conc 31.5 g/dL (30.0-36.0); Mean Corpuscular Hemoglobin 31.7 pg (28.0-34.0); Mean Corpuscular Volume 100.5 fl (81-99); Mean Platelet Volume 13.4 fL (7.4-10.4); Monocytes # 0.5 10^3/uL (0.2-0.9); Monocytes % 7.1 %; Neutrophils # 4.52 10^3/uL (1.8-7.7); Neutrophils % 65.4 %; Nucleated Red Blood Cells % 0 %; Platelet Count 152 10^3/cmm (130-400); Red Blood Count 4.07 10^6/uL (4.1-5.3); Red Cell Distribution Width 14.3 % (12.1-15.1); White Blood Count 6.9 10^3/uL (4.0-10.0)
[2022-01-07 06:28] LABS: Slide Review Slide Review Perform
[2022-01-07] MEDS: nicotine 14 mg Patch 1 PATCH TRANSDERMA (08:09)
[2022-01-07] MEDS: carvedilol 6.25 mg Tablet PO (08:10)
[2022-01-07] MEDS: atorvastatin 40 mg Tablet PO (08:10)
[2022-01-07] MEDS: pregabalin 75 mg Capsule PO (08:10)
[2022-01-07] MEDS: loratadine 10 mg Tablet PO (08:10)
[2022-01-07] MEDS: losartan 50 mg Tablet PO (08:10)
[2022-01-07] MEDS: aspirin 81 mg EC Tablet PO (08:10)
[2022-01-07] MEDS: clopidogrel 75 mg Tablet PO (08:10)
--- NOTE | 2022-01-07 08:20 | PM.DCS ---
Discharge Providers Date of Admission: 01/06/22 15:49 Date of Discharge: January 07, 2022 Attending Provider at Admission: Nathan Curtis MD Attending Provider at Discharge: Nathan Curtis MD Primary Care Provider: JOSIAH Campos Diagnoses at Discharge Discharge Diagnosis (1) Stroke-like symptoms: Status: Acute (2) Left leg pain: Status: Acute (3) Hypertension: Status: Acute Qualifiers: Hypertension type: unspecified Qualified Code(s): I10 - Essential (primary) hypertension (4) Hyperlipidemia: Status: Acute Permanent problem details: (5) Tobacco use disorder: Status: Acute (6) Sinusitis: Status: Acute (7) Anxiety and depression: Status: Acute Reason for Visit Reason for Visit: whole left side hurting, hand numbness Hospital Course Hospital Course Herlinda Israel is a 51 year old female with a past medical history significant for TIA/CVA x4, anxiety, depression, lumbar spinal fusion, hypertension, and tobacco use disorder who presents to the emergency department with strokelike symptoms, found to have a transient ischemic attack. Patient was admitted for further monitoring. Continuous telemetry showed no evidence of atrial fibrillation. Transthoracic echocardiogram was negative for acute findings. Plain head CT and CTA of head and neck were negative for acute stroke. MRI of brain was negative for ischemic stroke. Her strokelike symptoms resolved overnight consistent with a transient ischemic attack. She is being treated with 21 days of dual antiplatelet therapy with aspirin and Plavix. She is to continue her high intensity statin. Patient was also found to have left leg pain with associated weakness which is suspected to be a separate process from her TIA. She was started on a trial of Lyrica and as needed Flexeril for suspected sciatica. She is to follow-up with her primary care provider 4 to 7 days to monitor her response to treatment. Physical Exam Narrative: General: Patient is awake and alert. Head: Normocephalic. Atraumatic. EOM intact. Neck: No JVD. Cardiovascular: RRR. No gallops. No murmurs. No peripheral edema. Lungs: Clear to auscultation, no use of accessory muscles, no crackles or wheezes. Skin: No jaundice. No rashes. Abdomen: Normal bowel sounds, abdomen soft and nontender. Extremeties: No cyanosis or clubbing. Musculoskeletal: 5/5 strength, normal range of motion, no swollen or erythematous joints. Cranial nerves grossly intact. Neurological: Moves all 4 extremities. No myoclonus. Discharge Data Studies Completed and Pending Completed Studies During Hospitalization Category Date Time Status CT angio headneck* [id number] Stat Cat Scan 01/06/22 16:[address] head wo con* [id number] Stat Cat Scan 01/06/22 12:47 Completed MR head wo con* [id number] Stat MRI 01/06/22 16:30 Completed CV. echo complete* [id number] Stat Ultrasound 01/06/22 16:30 Completed US carotid duplex bilateral [CV carotid duplex BI* Ultrasound 01/06/22 12:49 Completed [id number]] Stat Pending at discharge Category Date Time Status Drug Screen, Urine Stat Lab 01/06/22 16:37 Ordered Urinalysis Stat Lab 01/06/22 16:37 Ordered Radiology Impressions Head CT 01/06/22 12:47 IMPRESSION: 1. Negative noncontrast head CT. No edema or hemorrhage. 2. LEFT sphenoid sinus disease. Head MRI 01/06/22 16:30 IMPRESSION: No acute ischemia. Head/Neck CTA 01/06/22 16:30 IMPRESSION: No large vessel stenosis or occlusion. IMPRESSION: Mild stenosis at the origin of the left internal carotid artery with less than 50% luminal narrowing. No significant stenosis or occlusion. REFERENCES: NASCET CRITERIA. The degree of internal carotid artery stenosis is based on NASCET criteria. Normal is no stenosis. Mild is less than 50% stenosis. Moderate is 50-69% stenosis. Severe is 70% to 99% stenosis. Total occlusion is no detectable patent lumen. Laboratory Results WBC 6.9 10^3/uL (4.0-10.0) 01/07/22 05:45 RBC 4.07 10^6/uL (4.1-5.3) L 01/07/22 05:45 Hgb 12.9 g/dL (11.5-15.3) 01/07/22 05:45 Hct 40.9 % (37.0-47.0) 01/07/22 05:45 MCV 100.5 fl (81-99) H D 01/07/22 05:45 MCH 31.7 pg (28.0-34.0) 01/07/22 05:45 MCHC 31.5 g/dL (30.0-36.0) 01/07/22 05:45 RDW 14.3 % (12.1-15.1) 01/07/22 05:45 Plt Count 152 10^3/cmm (130-400) 01/07/22 05:45 MPV 13.4 fL (7.4-10.4) H 01/07/22 05:45 Neut % (Auto) 65.4 % 01/07/22 05:45 Lymph % (Auto) 24.1 % 01/07/22 05:45 Whiteside % (Auto) 7.1 % 01/07/22 05:45 Eos % (Auto) 2.7 % 01/07/22 05:45 Baso % (Auto) 0.4 % 01/07/22 05:45 Neut # (Auto) 4.52 10^3/uL (1.8-7.7) 01/07/22 05:45 Lymph # (Auto) 1.7 10^3/uL (0.8-4.8) 01/07/22 05:45 Whiteside # (Auto) 0.5 10^3/uL (0.2-0.9) 01/07/22 05:45 Eos # (Auto) 0.2 10^3/uL (0.0-0.8) 01/07/22 05:45 Baso # (Auto) 0.0 10^3/uL (0.0-0.1) 01/07/22 05:45 Nucleated RBC % (auto) 0 % 01/07/22 05:45 Nucleated RBCs # 0.0 /100WBC 01/07/22 05:45 PT 12.70 SECONDS (12.1-14.9) 01/06/22 13:21 INR 0.92 (0.8-1.2) 01/06/22 13:21 APTT 26.0 SECONDS (23.9-36.7) 01/06/22 13:21 Sodium 138 mmol/L (136-145) 01/06/22 13:21 Potassium 4.0 mmol/L (3.5-5.1) 01/06/22 13:21 Chloride 101 mmol/L (98-107) 01/06/22 13:21 Carbon Dioxide 27 mmol/L (22-29) 01/06/22 13:21 Anion Gap 14.0 (5-19) 01/06/22 13:21 BUN 13 mg/dL (6-20) 01/06/22 13:21 Creatinine 0.7 mg/dL (0.5-0.9) 01/06/22 13:21 GFR Calculation 87.5 mL/min (90-130) L 01/06/22 13:21 Glucose 91 mg/dL (65-115) 01/06/22 13:21 Estimat Average Glucose Cancelled 01/07/22 04:48 Hemoglobin A1c Cancelled 01/07/22 04:48 Calculated Osmolality 286 mOsm/kg (285-295) 01/06/22 13:21 Calcium 9.5 mg/dL (8.5-10.5) 01/06/22 13:21 Total Bilirubin 0.4 mg/dL (0.15-1.2) 01/06/22 13:21 AST 25 U/L (0-32) 01/06/22 13:21 ALT 38 U/L (0-33) H 01/06/22 13:21 Alkaline Phosphatase 103 IU/L (35-105) 01/06/22 13:21 Total Protein 8.0 g/dL (6.6-8.7) 01/06/22 13:21 Albumin 4.9 g/dL (3.5-5.2) 01/06/22 13:21 Globulin 3.1 g/dL (1.3-4.6) 01/06/22 13:21 Triglycerides 85 mg/dL (0-150) 01/07/22 04:58 Cholesterol 137 mg/dL (0-200) 01/07/22 04:58 LDL Cholesterol, Calc 74 mg/dL (50-129) 01/07/22 04:58 HDL Cholesterol 46 mg/dL (60-100) L 01/07/22 04:58 LDL/HDL Ratio 1.61 RATIO (0.00-3.22) 01/07/22 04:58 Cholesterol/HDL Ratio 2.98 mg/dL (0.0-4.40) 01/07/22 04:58 Vitals Last Vital Signs Temp 98.6 F 01/07/22 08:00 Pulse 73 01/07/22 08:00 Resp 16 01/07/22 08:00 BP 146/103 01/07/22 08:10 Pulse Ox 94 01/07/22 08:00 Discharge Plan Discharge Patient Disposition: Home Condition: Stable Prescriptions: New cyclobenzaprine 10 mg Tablet 5 mg PO DAILY PRN (Reason: Muscle Spasms) 30 Days Qty: 30 0RF clopidogrel 75 mg Tablet 75 mg PO DAILY 20 Days Qty: 20 0RF pregabalin 75 mg capsule 75 mg PO BID 30 Days Qty: 60 0RF Continued albuterol sulfate 90 mcg/actuation HFA aerosol inhaler 1 inh inhalation QID PRN (Reason: shortness of breath or wheezing) Qty: 8.5 0RF aspirin 81 mg tablet,delayed release (DR/EC) 81 mg PO DAILY 30 Days Qty: 30 5RF atorvastatin 40 mg tablet 40 mg PO DAILY 30 Days Qty: 30 5RF carvedilol 6.25 mg tablet See Rx Instructions .ROUTE .COMPLEX Qty: 60 0RF Dose Instruction: TAKE 1 TABLET BY MOUTH TWICE DAILY WITH A MEAL/FOOD Rx Instructions: TAKE 1 TABLET BY MOUTH TWICE DAILY WITH A MEAL/FOOD paroxetine HCl 20 mg tablet See Rx Instructions .ROUTE .COMPLEX Qty: 90 0RF Dose Instruction: Take 1 tablet by mouth once daily for 90 days Rx Instructions: Take 1 tablet by mouth once daily for 90 days nitroglycerin 0.4 mg tablet, sublingual See Rx Instructions .ROUTE .COMPLEX Qty: 30 2RF Dose Instruction: DISSOLVE ONE TABLET UNDER THE TONGUE EVERY 5 MINUTES NEEDED FOR CHEST PAIN FOR 30 DAYS. DO NOT EXCEED A TOTAL OF 3 DOSES PER EPISODE. Rx Instructions: DISSOLVE ONE TABLET UNDER THE TONGUE EVERY 5 MINUTES NEEDED FOR CHEST PAIN FOR 30 DAYS. DO NOT EXCEED A TOTAL OF 3 DOSES PER EPISODE. losartan 50 mg tablet 50 mg PO BID 0RF magnesium 30 mg Tablet 30 mg PO DAILY 0RF Claritin 10 mg Tablet 10 mg PO DAILY 0RF Discharge Orders: Discharge Order (Routine); Ordered 01/07/22 Ordered By: Nathan Curtis Referrals: JOHNIE Dueñas, MARKET ANALYST [Primary Care Provider] - 4-7 days Discharge Diet: Cardiac Discharge Activity: Increase activity as tolerated Patient Instructions: Opioid Safety Stand Alone Forms: Work/School Release Discharge Attestations Time Spent in Discharge Care*: greater than 30 min Time Spent in Smoking Cessation: Patient was counseled on smoking cessation for greater than 3 minutes on 01/06. Quality Metrics Clinical Quality Measures [ No reported AMI, CVA or VTE this stay] Coding Level of Care Code Acute Chg [facility] note Diagnoses Stroke-like symptoms R29.90 Left leg pain M79.605 Hypertension I10 Hypertension type: unspecified Hyperlipidemia E78.5 Tobacco use disorder F17.200 Sinusitis J32.9 Anxiety and depression F41.9; F32.9
[2022-01-07 08:42] LABS: Glucose Point of Care 90 mg/dL (70-110)
--- NOTE | 2022-01-07 11:06 | PC.NURSE ---
Discharge Note Patient discharged to home via private vehicle accompanied by . Discharge instructions reviewed with patient and/or manufacturers service representative. Mobile pharmacy medications and/or prescriptions provided. Belongings/home medications returned. Pt had trouble with filling her new rx Lyrica. Dr Curtis suggested goodrx. Pt assisted with it to check on it, she was okay to get it filled in [facility].
== END 2022-01-07 11:04 | disposition home or self-care (01) ==
LOC: ER 12:54 → CSU 16:18
PROVIDERS: Admitting Provider Internal Medicine; Emergency Provider Family Medicine; PCP Nurse Practitioner Family; Visit Provider Internal Medicine
DX: R29.90 Unspecified symptoms and signs involving the nervous system (principal); M79.605 Pain in left leg; I10 Essential (primary) hypertension; E78.5 Hyperlipidemia, unspecified; F17.200 Nicotine dependence, unspecified, uncomplicated; J32.9 Chronic sinusitis, unspecified; F41.9 Anxiety disorder, unspecified; F32.9 Major depressive disorder, single episode, unspecified; Z86.73 Personal history of transient ischemic attack (TIA), and cerebral infarction without residual deficits; I65.23 Occlusion and stenosis of bilateral carotid arteries; Z98.1 Arthrodesis status
CPT/HCPCS: 36415; 36416; 70450; 70496; 70498; 70551; 80053; 80061; 82962; 85025; 85610; 85730; 92523; 92610; 93005; 93306; 93880; 96372; 96374; 97110; 97161; 97165; 99285; G0378; J1650; J2060; Q9967

== ENCOUNTER 2022-01-29 11:06 | Emergency (ER) | payer OTHER, SELFPAY ==
[2022-01-29 11:16] VITALS: BP 122/79; PULSE 74; RESP 16; TEMP 36.6; O2SAT 97; BMI 32.3
--- NOTE | 2022-01-29 11:29 | ED_ITS ---
HPI - Extremity Problem General: Chief complaint: Extremity Injury, Upper Stated complaint: Bite on Right Arm Swelling and red Time Seen by Provider: 01/29/22 11:21 Source: patient Mode of arrival: ambulatory Limitations: no limitations History of Present Illness: 51-year-old female presents to the ER today for an insect bite to the right arm. Patient reports she just notices yesterday. Today she noticed there is increased swelling and erythema and some streaking up the arm. Patient reports she does not know what bit her. It did itch a little bit yesterday and now today is just a little bit sore. She denies any difficulty breathing or other symptoms associated with this bite. Patient does remember putting on an old coat and thinks maybe there was something in the arm of that. Review of Systems General: Reports: 10 or more systems reviewed and unremarkable except in HPI and below PFSH ED PFSH: Medical History Anxiety and depression Environmental and seasonal allergies GERD (gastroesophageal reflux disease) History of CVA (cerebrovascular accident) Hypertension Surgical History History of spinal fusion S/P appendectomy S/P cholecystectomy Family History Mother Thyroid disease Cancer Social History Smoking and tobacco status: current every day smoker Quit status (tobacco): not considering quitting Second hand smoke exposure: No Smoking risk assessment/counseling performed?: Yes Alcohol intake: never Desire information about alcohol rehabilitation?: No Counseling given: No Desire information about substance/drug rehabilitation?: No Counseling given: No Physical Exam Const: COMMON NORMALS: no acute distress, average body habitus, patient oriented x3 and no limitations Neck/C-Spine: COMMON NORMALS: full ROM Resp: COMMON NORMALS: normal respiratory effort EFFORT & INSPECTION: Yes able to speak in complete sentences Cardio: COMMON NORMALS: regular rate and regular rhythm RATE: regular rate RHYTHM: regular rhythm Extremity: COMMON NORMALS: normal to inspection and full ROM Neuro: COMMON NORMALS: patient oriented x3 Psych: COMMON NORMALS: mental status grossly normal, Normal thought process present and cooperative THOUGHT PROCESS: Normal thought process present Skin: NARRATIVE SKIN EXAM: Patient has an area on the right posterior forearm that is slightly erythematous and streaks are noted running circumferential around the arm. There is a central bite/radha in the area of the redness. There is mild tenderness to the touch. No fluctuance or induration noted. Course ED course: 51-year-old female presents to the ER today for an insect bite to the right forearm. She reports she just noticed this yesterday and today noticed there is more redness and now streaking up her arm. Patient unsure what might of bit her but does remember putting on an old coat. Patient reports it has worsened overnight. She denies any other associated symptoms. On exam there is noted to be some redness and streaking on patient's arm. Vital Signs: Vital signs: Vital Signs Temperature 98 F 01/29/22 11:16 Pulse Rate 74 01/29/22 11:16 Respiratory Rate 16 01/29/22 11:16 Blood Pressure 122/79 01/29/22 11:16 Pulse Oximetry 97 01/29/22 11:16 MDM - Extremity (Nontraumatic) Medical Decision Making 51-year-old female presents to the ER today for an insect bite to the right forearm. She reports she just noticed this yesterday and today noticed there is more redness and now streaking up her arm. Patient unsure what might of bit her but does remember putting on an old coat. Patient reports it has worsened overnight. She denies any other associated symptoms. On exam there is noted to be some redness and streaking on patient's arm. We will go ahead and place patient on Bactrim at this time. Recommended warm compresses. Follow-up with PCP in 5 to 7 days. Return to the ER with new or worsening symptoms. Patient verbalized understanding and is in agreement with the treatment plan. Critical Care Time Critical Care Time: Critical Care Time: No Discharge Plan Discharge Patient Disposition: Home Clinical Impression: Insect bite of arm, right Condition: Stable Prescriptions: New Bactrim DS 800-160 mg tablet 1 tab PO BID 7 Days Qty: 14 0RF No Action albuterol sulfate 90 mcg/actuation HFA aerosol inhaler 1 inh inhalation QID PRN (Reason: shortness of breath or wheezing) Qty: 8.5 0RF carvedilol 6.25 mg tablet See Rx Instructions .ROUTE .COMPLEX Qty: 60 5RF Dose Instruction: TAKE 1 TABLET BY MOUTH TWICE DAILY WITH A MEAL/FOOD Rx Instructions: TAKE 1 TABLET BY MOUTH TWICE DAILY WITH A MEAL/FOOD losartan 50 mg tablet 50 mg PO BID Qty: 60 5RF cyclobenzaprine 10 mg tablet 5 mg PO DAILY PRN (Reason: Muscle Spasms) 30 Days Qty: 15 0RF aspirin 81 mg tablet,delayed release (DR/EC) 81 mg PO DAILY 30 Days Qty: 30 5RF atorvastatin 40 mg tablet 40 mg PO DAILY 30 Days Qty: 30 5RF paroxetine HCl 20 mg tablet See Rx Instructions .ROUTE .COMPLEX Qty: 90 0RF Dose Instruction: Take 1 tablet by mouth once daily for 90 days Rx Instructions: Take 1 tablet by mouth once daily for 90 days nitroglycerin 0.4 mg tablet, sublingual See Rx Instructions .ROUTE .COMPLEX Qty: 30 2RF Dose Instruction: DISSOLVE ONE TABLET UNDER THE TONGUE EVERY 5 MINUTES NEEDED FOR CHEST PAIN FOR 30 DAYS. DO NOT EXCEED A TOTAL OF 3 DOSES PER EPISODE. Rx Instructions: DISSOLVE ONE TABLET UNDER THE TONGUE EVERY 5 MINUTES NEEDED FOR CHEST PAIN FOR 30 DAYS. DO NOT EXCEED A TOTAL OF 3 DOSES PER EPISODE. magnesium 30 mg Tablet 30 mg PO DAILY 0RF Claritin 10 mg Tablet 10 mg PO DAILY 0RF pregabalin 75 mg capsule 75 mg PO BID 30 Days Qty: 60 0RF Discharge Orders: Discharge ED (Routine); Ordered 01/29/22 Ordered By: Kellie Park Referrals: JOHNIE Dueñas, WIRED SWE[employer] CUTTER [Primary Care Provider] - Discharge Diet: Usual diet Discharge Activity: Resume usual activity Patient Instructions: Opioid Safety Activity Restrictions/Additional Instructions: Take Bactrim as prescribed. Warm Epsom salt soaks or. Recommended. Follow-up with PCP in 5 to 7 days. Return to the ER with new or worsening symptoms. Coding Level of Care Code ED Cardiac Nurse Practitioner for Migdalia Ernst
== END 2022-01-29 11:40 | disposition home or self-care (01) ==
PROVIDERS: Emergency Provider Physician Assistant; PCP Nurse Practitioner Family
DX: S40.861A Insect bite (nonvenomous) of right upper arm, initial encounter (principal); W57.XXXA Bitten or stung by nonvenomous insect and other nonvenomous arthropods, initial encounter
CPT/HCPCS: 99283

== ENCOUNTER → 2022-08-08 10:14 | Outpatient (BNVA) | payer OTHER, SELFPAY | PROVIDERS: PCP Nurse Practitioner; Visit Provider Nurse Practitioner | DX: R50.9 Fever, unspecified (principal); J11.1 Influenza due to unidentified influenza virus with other respiratory manifestations | CPT/HCPCS: 87400 ==

== ENCOUNTER 2022-09-15 11:00 | Emergency (ER) | payer MEDICAID, SELFPAY ==
[2022-09-15 11:10] VITALS: BP 147/100; PULSE 80; RESP 18; TEMP 36.9; O2SAT 97
--- NOTE | 2022-09-15 11:18 | ED_ITS ---
HPI - General Adult General: Chief complaint: General Medical Stated complaint: L Side Neck pain, Dizzy, Nausea Time Seen by Provider: 09/15/22 11:08 History of Present Illness: Ms. Israel is a 52-year-old lady with history of hypertension, hyperlipidemia, tobaccoism presenting to the emergency department due to generalized illness. She reports about 1 week history of diarrhea and nausea without significant abdominal pain. She initially thought this was may be just food poisoning however this is persisted. Over the past 3 days she notes atraumatic onset of left arm and left neck pain as well as left anterior chest pain which has been sharp and intermittent in nature. Intensity symptoms when present is moderate to severe. Course has persisted. No other specific changes in health, exacerbating, or alleviating factors identified. Onset (ago): day(s) Severity: moderate Quality: stabbing Pain Consistency: intermittent Review of Systems General: Reports: 10 or more systems reviewed and unremarkable except in HPI and below PFSH ED 2 PFSH: Medical History Anxiety and depression Environmental and seasonal allergies GERD (gastroesophageal reflux disease) History of CVA (cerebrovascular accident) Hypertension Stroke-like symptoms Surgical History History of spinal fusion S/P appendectomy S/P cholecystectomy Family History Mother Thyroid disease Cancer Social History Smoking and tobacco status: current every day smoker Quit status (tobacco): not considering quitting Second hand smoke exposure: No Smoking risk assessment/counseling performed?: Yes Alcohol intake: never Desire information about alcohol rehabilitation?: No Counseling given: No Desire information about substance/drug rehabilitation?: No Counseling given: No Physical Exam Const: COMMON NORMALS: alert GENERAL APPEARANCE: cooperative and well developed HENMT: COMMON NORMALS: normocephalic and atraumatic HEAD & SCALP: normocephalic and atraumatic Eye: COMMON NORMALS: conjunctivae normal CONJUNCTIVA: Yes conjunctivae normal SCLERA: sclerae normal Neck/C-Spine: COMMON NORMALS: supple and no meningeal signs GENERAL: Yes trachea midline Resp: COMMON NORMALS: normal respiratory effort and clear to auscultation bilaterally EFFORT & INSPECTION: Yes able to speak in complete sentences AUSCULTATION: clear to auscultation bilaterally Cardio: COMMON NORMALS: regular rate and regular rhythm RATE: regular rate RHYTHM: regular rhythm GI: COMMON NORMALS: Soft to palpation PALPATION: Yes Soft to palpation, No Tenderness to palpation present (GI), No Guarding due to palpation present (GI) and No Rigid due to palpation Extremity: NARRATIVE EXTREMITY EXAM: Normal range of motion. Shoulder and neck pain is not reproducible with palpation or range of motion. GENERAL: Yes normal exam except as noted and No edema Neuro: COMMON NORMALS: moves all extremities SENSORIUM/ORIENTATION: Yes alert and No Orientation impaired MENINGEAL SIGNS: Yes no meningeal signs Psych: COMMON NORMALS: mental status grossly normal and Normal thought process present THOUGHT PROCESS: Normal thought process present Course Vital Signs: Vital signs: Vital Signs Temperature 98.4 F 09/15/22 11:10 Pulse Rate 63 09/15/22 14:00 Respiratory Rate 16 09/15/22 14:24 Blood Pressure 152/91 09/15/22 14:00 Pulse Oximetry 97 09/15/22 14:00 Oxygen Delivery Me thod 09/15/22 11:10 MDM - General Adult Medical Decision Making 52-year-old lady presenting with generalized illness including GI symptoms and abdominal pain. Exam as above. Patient is nontoxic. EKG notable for sinus rhythm with low voltage, normal axis and intervals, no STEMI. Similar upon repeat. Labs with no leukocytosis, normal hemoglobin and platelet count. Metabolic panel with perhaps minimal evidence of dehydration. Overall similar to prior. Procalcitonin negative as are rapid viral testing. CT head negative for acute intracranial pathology. Chest x-ray with no lobar consolidation or pneumothorax. Upon reassessment after fluids, analgesia, muscle relaxer patient feels improved with essentially resolution of symptoms. She is able to tolerate p.o. intake. The most likely cause of patient's symptoms is unclear, likely viral in nature. I believe that the patient has acute exacerbation of COPD which will be treated. Patient is low risk by heart score and does not require inpatient management at this time. The results of ED evaluation were discussed with the patient including prescriptions and/or symptomatic cares (if applicable) including appropriate and responsible use, followup plan, and return precautions. The patient verbalized understanding and felt safe for discharge. Medical Records I reviewed the patient's medical records. Lab Data I reviewed the patient's lab results. 09/15/22 11:55 09/15/22 11:55 Radiology Impressions Chest X-Ray 09/15/22 11:24 IMPRESSION: Unremarkable portable chest. Head CT 09/15/22 11:24 IMPRESSION: 1. Negative noncontrast head CT. 2. Mixed density secretions in the LEFT sphenoid sinus. This can be seen with inspissated secretions, blood or fungal sinusitis. Similar to the prior study. Laboratory Results WBC 7.1 10^3/uL (4.0-10.0) 09/15/22 11:55 RBC 4.54 10^6/uL (4.1-5.3) 09/15/22 11:55 Hgb 14.7 g/dL (11.5-15.3) 09/15/22 11:55 Hct 44.6 % (37.0-47.0) 09/15/22 11:55 MCV 98.2 fl (81-99) 09/15/22 11:55 MCH 32.4 pg (28.0-34.0) 09/15/22 11:55 MCHC 33.0 g/dL (30.0-36.0) 09/15/22 11:55 RDW 13.0 % (12.1-15.1) 09/15/22 11:55 Plt Count 168 10^3/cmm (130-400) 09/15/22 11:55 MPV 13.0 fL (7.4-10.4) H 09/15/22 11:55 Neut % (Auto) 64.8 % 09/15/22 11:55 Lymph % (Auto) 25.1 % 09/15/22 11:55 [place] % (Auto) 6.0 % 09/15/22 11:55 Eos % (Auto) 3.1 % 09/15/22 11:55 Baso % (Auto) 0.7 % 09/15/22 11:55 Neut # (Auto) 4.61 10^3/uL (1.8-7.7) 09/15/22 11:55 Lymph # (Auto) 1.8 10^3/uL (0.8-4.8) 09/15/22 11:55 [place] # (Auto) 0.4 10^3/uL (0.2-0.9) 09/15/22 11:55 Eos # (Auto) 0.2 10^3/uL (0.0-0.8) 09/15/22 11:55 Baso # (Auto) 0.1 10^3/uL (0.0-0.1) 09/15/22 11:55 Nucleated RBC % (auto) 0 % 09/15/22 11:55 Nucleated RBCs # 0.0 /100WBC 09/15/22 11:55 Sodium 135 mmol/L (136-145) L 09/15/22 11:55 Potassium 4.0 mmol/L (3.5-5.1) 09/15/22 11:55 Chloride 98 mmol/L (98-107) 09/15/22 11:55 Carbon Dioxide 26 mmol/L (22-29) 09/15/22 11:55 Anion Gap 15.0 (5-19) 09/15/22 11:55 BUN 12 mg/dL (6-20) 09/15/22 11:55 Creatinine 0.5 mg/dL (0.5-0.9) 09/15/22 11:55 GFR Calculation 128.6 mL/min (90-130) 09/15/22 11:55 Glucose 110 mg/dL (65-115) 09/15/22 11:55 Calculated Osmolality 280 mOsm/kg (285-295) L 09/15/22 11:55 Calcium 9.2 mg/dL (8.5-10.5) 09/15/22 11:55 Total Bilirubin 0.8 mg/dL (0.15-1.2) 09/15/22 11:55 AST 18 U/L (0-32) 09/15/22 11:55 ALT 17 U/L (0-33) 09/15/22 11:55 Alkaline Phosphatase 115 U/L (35-105) H 09/15/22 11:55 Troponin T Baseline 6 ng/L (0-10) 09/15/22 11:55 C-Reactive Protein 7.8 mg/L (0.0-4.9) H 09/15/22 11:55 NT-Pro-B Natriuret Pep 41 pg/mL (0-125) 09/15/22 11:55 Total Protein 8.1 g/dL (6.6-8.7) 09/15/22 11:55 Albumin 5.0 g/dL (3.5-5.2) 09/15/22 11:55 Globulin 3.1 g/dL (1.3-4.6) 09/15/22 11:55 Procalcitonin 0.02 ng/mL (0-0.5) 09/15/22 11:55 TSH 1.05 uIU/mL (0.27-4.20) 09/15/22 11:55 Influenza Type A Ag negative (Negative) 09/15/22 11:57 Influenza Type B Ag negative (Negative) 09/15/22 11:57 SARS-CoV-2 Ag (Rapid) negative (Negative) 09/15/22 11:57 Discharge Plan Discharge Patient Disposition: Home Clinical Impression: Atypical chest pain, Diarrhea Condition: Stable Prescriptions: New ondansetron 4 mg tablet,disintegrating 4 mg PO Q8H PRN (Reason: nausea and vomiting) Qty: 15 0RF albuterol sulfate 90 mcg/actuation HFA aerosol inhaler 2 inh inhalation Q4H PRN (Reason: shortness of breath or wheezing) Qty: 8.5 1RF No Action albuterol sulfate 90 mcg/actuation HFA aerosol inhaler 1 inh inhalation QID PRN (Reason: shortness of breath or wheezing) Qty: 8.5 0RF losartan 50 mg tablet 50 mg PO BID Qty: 60 5RF nitroglycerin 0.4 mg tablet, sublingual See Rx Instructions .ROUTE .COMPLEX Qty: 30 2RF Dose Instruction: DISSOLVE ONE TABLET UNDER THE TONGUE EVERY 5 MINUTES NEEDED FOR CHEST PAIN FOR 30 DAYS. DO NOT EXCEED A TOTAL OF 3 DOSES PER EPISODE. Rx Instructions: DISSOLVE ONE TABLET UNDER THE TONGUE EVERY 5 MINUTES NEEDED FOR CHEST PAIN FOR 30 DAYS. DO NOT EXCEED A TOTAL OF 3 DOSES PER EPISODE. carvedilol 6.25 mg tablet 6.25 mg PO BID paroxetine HCl 20 mg tablet 20 mg PO DAILY Discharge Orders: Discharge ED (Routine); Ordered 09/15/22 Ordered By: Wei Caldwell Referrals: Pauline Chen, SALES AND SERVICE REPRESENTATIVE [Primary Care Provider] - Discharge Diet: Usual diet Discharge Activity: Increase activity as tolerated Patient Instructions: Chest Pain (ED), COPD (Chronic Obstructive Pulmonary Disease) (ED), Acute Diarrhea (ED) Activity Restrictions/Additional Instructions: Thank you for visiting the emergency department. You were seen and evaluated for chest discomfort and diarrhea. The exact cause of your symptoms is unclear however does not appear to need hospitalization at this time. I will message for follow-up for further cardiac testing in the outpatient setting. I will prescribe steroids and antibiotics. Please also use your albuterol metered-dose inhaler 2 puffs every 4 hours for 24 hours followed by 2 puffs every 6 hours for 24 hours followed by 2 puffs every 8 hours for 24 hours and then return to the normal schedule. Please return to the emergency department for uncontrolled symptoms or anything else that you are concerned about a feel needs emergency department evaluation. Stand Alone Forms: Work/School Release Coding Level of Care Code ED Medical Record Assistant for Migdalia Fwd Exam Comprehensive
--- NOTE | 2022-09-15 11:24 | XR_ITS ---
WS: [id number] PORTABLE CHEST HISTORY: Acute onset chest pain and short of breath. COMPARISON: 08/28/2021 Lungs are clear and well expanded. No pleural effusion or pneumothorax. Cardiac size: Normal. Mediastinum/Aorta: Normal mediastinum. No osseous abnormality seen. XR/XR chest 1V portable [id number] IMPRESSION: Unremarkable portable chest.
--- NOTE | 2022-09-15 11:24 | CT_ITS ---
WS: [id number] CT HEAD NONCONTRAST HISTORY: unsteady, confused feeling TECHNIQUE: Contiguous axial imaging performed through the brain in 2.5 mm imaging. Bone and soft tiss ue windows. Sagittal and coronal reformats reviewed. All CT scans at [facility] use at least one of these dose optimization techniques: automated exposure control; mA and/or kV adjustment per pa tient size (includes targeted exams where dose is matched to clinical indication); or iterative recon struction. DLP: 1141.19 mGy.cm COMPARISON: 01/06/2022 No acute intracranial hemorrhage, midline shift or mass effect. No atrophy or prior infarcts or herniation. Ventricles: Normal size with no hydrocephalus. No inferior displacement of cerebellar tonsils. Paranasal sinuses: Dense opacification LEFT sphenoid sinus. Mixed density opacification. Mastoid air cells: Well pneumatized. Calvarium and scalp: Skull is intact with no soft tissue edema or swelling. CT/CT head wo con* [id number] IMPRESSION: 1. Negative noncontrast head CT. 2. Mixed density secretions in the LEFT sphenoid sinus. This can be seen with inspissated secretions, blood or fungal sinusitis. Similar to the prior study.
--- NOTE | 2022-09-15 11:34 | ECG_ITS ---
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 Measurements Intervals [place] Rate: 68 P: 66 MO: 160 QRS: 44 QRSD: 98 T: 35 QT: 395 QTc: 422 Interpretive Statements SINUS RHYTHM LOW QRS VOLTAGE IN PRECORDIAL LEADS [QRS DEFLECTION < 1.0 mV IN CHEST LEADS] Compared to ECG 01/06/2022 12:54:37 No significant changes Electronically Signed On 09-15-2022 14:37:56 BOAT FINISHER by Lex Luo M.D. [email or web address] [id number]
[2022-09-15 12:07] LABS: Basophils # 0.1 10^3/uL (0.0-0.1); Basophils % 0.7 %; Eosinophils # 0.2 10^3/uL (0.0-0.8); Eosinophils % 3.1 %; Hematocrit 44.6 % (37.0-47.0); Hemoglobin 14.7 g/dL (11.5-15.3); Lymphocytes # 1.8 10^3/uL (0.8-4.8); Lymphocytes % 25.1 %; Mean Corpuscular Hemoglobin 32.4 pg (28.0-34.0); Mean Corpuscular Volume 98.2 fl (81-99); Monocytes # 0.4 10^3/uL (0.2-0.9); Neutrophils # 4.61 10^3/uL (1.8-7.7); Neutrophils % 64.8 %; Nucleated Red Blood Cells % 0 %; Platelet Count 168 10^3/cmm (130-400); Red Blood Count 4.54 10^6/uL (4.1-5.3); White Blood Count 7.1 10^3/uL (4.0-10.0)
[2022-09-15] MEDS: sodium chloride 0.9% 1,000 ML 999 ML IV (12:08)
[2022-09-15 12:24] LABS: Influenza A by IFA negative (Negative); Influenza B by IFA negative (Negative); SARS Covid-2 Antigen negative (Negative)
[2022-09-15 12:24] LABS: Troponin(5th) Baseline 6 ng/L (0-10)
[2022-09-15 12:34] LABS: NT Pro B Type Natriuretic Pept 41 pg/mL (0-125); Procalcitonin 0.02 ng/mL (0-0.5); Thyroid Stimulating Hormone 1.05 uIU/mL (0.27-4.20)
[2022-09-15 12:45] LABS: Alanine Aminotransferase 17 U/L (0-33); Alkaline Phosphatase 115 U/L (35-105); Aspartate Amino Transferase 18 U/L (0-32); Blood Urea Nitrogen 12 mg/dL (6-20); C Reactive Protein 7.8 mg/L (0.0-4.9); Calcium 9.2 mg/dL (8.5-10.5); Carbon Dioxide 26 mmol/L (22-29); Chloride 98 mmol/L (98-107); Globulin 3.1 g/dL (1.3-4.6); Glomerular Filtration Rate 128.6 mL/min (90-130); Glucose 110 mg/dL (65-115); Osmolality Calculated 280 mOsm/kg (285-295); Sodium 135 mmol/L (136-145); Total Bilirubin 0.8 mg/dL (0.15-1.2); Total Protein 8.1 g/dL (6.6-8.7)
[2022-09-15 13:00] VITALS: BP 147/96; PULSE 65; RESP 16; O2SAT 96
[2022-09-15] MEDS: ketorolac 30 mg/mL INJ 15 MG IVP (13:08)
[2022-09-15] MEDS: diazePAM 2 mg Tablet PO (13:09)
--- NOTE | 2022-09-15 13:25 | ECG_ITS ---
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 Measurements Intervals [place] Rate: 59 P: 64 PA: 155 QRS: 41 QRSD: 92 T: 35 QT: 426 QTc: 422 Interpretive Statements SINUS BRADYCARDIA LOW QRS VOLTAGE IN PRECORDIAL LEADS [QRS DEFLECTION < 1.0 mV IN CHEST LEADS] Compared to ECG 09/15/2022 11:34:10 Sinus rhythm no longer present Electronically Signed On 09-15-2022 14:40:47 SEMICONDUCTOR PROCESSING GROUP LEADER by Lex Luo M.D. [email or web address] Star ECSnorth sunflower medical centerElastic Intelligenceholmes county joel [facility].CircleBuilder/store/[id number]
[2022-09-15 13:50] VITALS: RESP 16; O2SAT 100
[2022-09-15] MEDS: fentaNYL 50 mcg/mL INJ 2mL IVP (13:50)
[2022-09-15 14:00] VITALS: BP 152/91; PULSE 63; RESP 16; O2SAT 97
[2022-09-15 14:24] VITALS: RESP 16
== END 2022-09-15 14:24 | disposition home or self-care (01) ==
PROVIDERS: Emergency Provider Emergency Medicine; PCP Nurse Practitioner
DX: R07.89 Other chest pain (principal); R19.7 Diarrhea, unspecified; Z20.822 Contact with and (suspected) exposure to COVID-19; I10 Essential (primary) hypertension; Z86.73 Personal history of transient ischemic attack (TIA), and cerebral infarction without residual deficits; F17.210 Nicotine dependence, cigarettes, uncomplicated
CPT/HCPCS: 36415; 70450; 71045; 80053; 83880; 84145; 84443; 84484; 85025; 86140; 87426; 87804; 93005; 96374; 96375; 99285; J1885; J3010; J7030

== ENCOUNTER 2022-11-14 06:07 | Outpatient (CLI) | payer MEDICAID, SELFPAY ==
--- NOTE | 2022-11-14 06:30 | USCV_ITS ---
AdrianmacieHerlinda Age: 52 Gender: F : 1970 Exam Date: 11/14/2022 06:44 Ordering Phys: Pauline Chen LATHING SUPERVISOR LATHING SUPERVISOR Technologist: CT Exam Location: [facility] – [place] Indication: Risk Factors: Previous Vascular Surgery: Right Brachial BP: / Left Brachial BP: / Right Left Velocity (cm/s) Spectral Plaque Velocity (cm/s) Spectral Plaque Syst/Diast Broadening Syst/Diast Broadening 69.80/ 23.30 Prox CCA 93.70 / 34.20 84.00/ 28.30 Mid CCA 94.80 / 38.60 75.00/ 30.80 Distal CCA 68.40 / 27.60 50.60/ 20.70 Prox ICA 66.50 / 32.10 81.90/ 33.20 Mid ICA 74.10 / 35.90 95.90/ 36.40 Distal ICA 89.60 / 46.30 62.80 ECA 45.20 1.14 ICA/CCA 0.94 Antegrade Vertebral Antegrade 55.10/ 26.50 cm/s 68.40/ 30.20 cm/s Tri Subclavian Tri 72.80 119.6 0 FINDINGS rt bulb/ prx ica with calcified plq without stenosis at this time CONCLUSIONS Right ICA stenosis <50%. Severe calcified plaque right carotid bulb/ICA. Normal antegrade Doppler flow noted in the left vertebral artery. Left ICA stenosis <50%. Mild atheromatous plaque left carotid bulb/ICA. Normal antegrade Doppler flow noted in the right vertebral artery. Normal antegrade Doppler flow noted in the left vertebral artery. Reese Whittington MD (Electronically Signed) Final Date: 14 November 2022 08:42 S
== END 2022-11-14 06:08 | disposition home or self-care (01) ==
LOC: RAD 06:08
PROVIDERS: PCP Nurse Practitioner; Visit Provider Nurse Practitioner
DX: I65.23 Occlusion and stenosis of bilateral carotid arteries (principal); R42 Dizziness and giddiness
CPT/HCPCS: 93880

== ENCOUNTER 2022-12-01 10:44 | Day surgery (SDC) | payer BC, MEDICAID, SELFPAY ==
[2022-11-29 12:37] VITALS: BMI 33.4
--- NOTE | 2022-12-01 10:50 | USCV_ITS ---
Herlinda Israel Age: 52 Gender: F : 1970 Exam Date: 12/01/2022 12:23 Ordering Phys: Lyssa Faust MD ([email or web address]) Technologist: GAL [place] [facility] [place] Indication: cva BP: / HR: Rhythm: Sinus Technical Quality: Adequate MEASUREMENTS (Male / Female) Normal Values Medications Patient given IV sedation by anesthesia service, for details please refer to the anesthesia report. Complications None. Proc. Components The patient was brought to the DOMENIAC examination room in a fasting state after obtaining an informed consent. The DOMENICA probe was passed into the posterior pharynx , mid-esophagus, distal esophagus, and gastric fundus. DOMENICA was performed at multiple levels. FINDINGS Left Ventricle Normal left ventricular size, systolic function and wall thickness, with no regional wall motion abnormalities. Right Ventricle Normal right ventricular size and systolic function. Right Atrium The right atrium is normal in size. Left Atrium The left atrium is normal in size. LA Appendage Normal left atrial appendage. Normal flow velocities in the left atrial appendage. IA Septum Normal interatrial septum. No patent foramen ovale. No evidence for an atrial septal defect. By color-flow Doppler examination or by saline contrast injection Mitral Valve Structurally normal mitral valve. Trace mitral valve regurgitation. No masses or vegetations Aortic Valve Structurally normal trileaflet aortic valve. No masses or lesions noted Tricuspid Valve No masses or vegetations.trace tricuspid valve regurgitation. Pulmonic Valve No masses or vegetations Pericardium No pericardial effusion. Aorta No unstable plaques or lesions noted CONCLUSIONS 1. No intracardiac masses or vegetations noted 2. The interatrial septum appears to to be intact with no ASD or patent foramen ovale, by color-flow Doppler examination or by saline contrast injection. 3. Normal cardiac chamber sizes with no intracavitary masses 4. Normal left atrial appendage and contractility. 5. No unstable plaques or lesions noted in the ascending, arch and the descending aorta. 6. Trace of mitral and tricuspid regurgitation No similar previous studies are available for comparison Dr Lyssa Faust MD FACC (Electronically Signed) Final Date: 06 December 2022 01:29 S
[2022-12-01] MEDS: sodium chloride 0.9% 1,000 ML 30 ML IV (11:04)
[2022-12-01 11:20] VITALS: BP 148/94; PULSE 73; RESP 18; TEMP 36.2; O2SAT 96
--- NOTE | 2022-12-01 12:03 | W.PM.OPSUD ---
Surgery/Procedure H&P Update DATE OF PROCEDURE: December 01, 2022 DATE H&P PERFORMED: 11/16/22 H&P UPDATE INFORMATION: I have reviewed H&P completed within last 30 days, I have examined patient prior to procedure and No changes to prior documentation PREOP DIAGNOSIS: CRYPTOGENIC STROKE PRIMARY INDICATION FOR PROCEDURE: Patient with recurrent CVA of unknown etiology PLANNED PROCEDURE: Operation Date: 12/01/22 12:00 Proposed Procedures p DOMENICA 68706,I63.9(Not Applicable) - Lyssa Faust MD
--- NOTE | 2022-12-01 12:24 | ANES.PREANE2 ---
Pre-Anesthetic Assessment Height/Weight: Height 1.68 m Weight 93.894 kg Temp Pulse Resp BP Pulse Ox O2 Del Method 97.1 F L 73 18 148/94 96 12/01/22 11:20 12/01/22 11:20 12/01/22 11:20 12/01/22 11:20 12/01/22 11:20 12/01/22 11:20 Preop Diagnosis: CRYPTOGENIC STROKE Operation Date: 12/01/22 12:00 Proposed Procedures p DOMENICA 71641,I63.9(Not Applicable) - Lyssa Faust MD Was Beta Joseph taken within 24 hours: Yes Was Clonidine taken within 24 hours: N/A Last intake: Intake Last Liquid Date 11/30/22 Last Liquid Time 20:00 Last Solid Date 11/30/22 Last Solid Time 20:00 Social Alcohol and Tobacco Exam alert, oriented x 3, clear to auscultation bilaterally and regular rate & rhythm Airway Submandibular: within normal limits Cervical ROM: within normal limits Mallampati: Class II Dentition: full History/ROS No significant history except as noted and No significant complaints CV/HEM Unstable Angina and Hypertension None reported Hepatic None reported GI Gastroesophageal Reflux Disease Metabolic Morbid Obesity Musc/skel Lower Back Pain and Osteoarthritis/DJD Neuropsych Cerebrovascular Accident Anesthetic Plan ASA status: 3 Anesthesia: Anesthesia Evaluation and MAC Risk of > 500 ml blood loss (7ml/kg in children): No Medications/Allergies Home Medications Medication Instructions Recorded Confirmed Last Taken Type nitroglycerin 0.4 mg sublingual See Rx Instructions .Route 01/04/22 12/01/22 3 Weeks Ago Rx tablet .COMPLEX #30 tabs ~11/08/22 losartan 50 mg tablet 50 mg PO BID #60 tabs 01/09/22 12/01/22 11/30/22 Rx albuterol sulfate 90 mcg/actuation 2 inh inhalation Q4H PRN shortness 09/15/22 12/01/22 2 Weeks Ago Rx aerosol inhaler of breath or wheezing #8.5 grams ~11/17/22 ondansetron 4 mg disintegrating 4 mg PO Q8H PRN nausea and 09/15/22 12/01/22 1 Month Ago Rx tablet vomiting #15 tabs ~10/29/22 paroxetine HCl 20 mg tablet 20 mg PO DAILY 09/15/22 12/01/22 12/01/22 History carvedilol 12.5 mg tablet 12.5 mg PO BID #180 tabs 11/16/22 12/01/22 12/01/22 Rx Allergies Allergy/AdvReac Type Severity Reaction Status Date / Time codeine Allergy anaphylaxis Verified 12/01/22 10:57 estradiol Allergy dizziness Verified 12/01/22 10:57 lisinopril Allergy cough and Verified 12/01/22 10:57 hypotension Penicillins Allergy anaphylaxis Verified 12/01/22 10:57 progesterone Allergy dizziness Verified 12/01/22 10:57 sulfamethoxazole Allergy RASH Verified 12/01/22 10:57 [From Bactrim] tramadol Allergy anaphylaxis Verified 12/01/22 10:57 trimethoprim [From Bactrim] Allergy RASH Verified 12/01/22 10:57 Current Medications Generic Name Dose Route Start Last Admin Trade Name Freq PRN Reason Stop Dose Admin Sodium Chloride 1,000 mls @ 30 mls/hr 12/01/22 11:00 12/01/22 11:04 Sodium Chloride 0.9% IV 12/02/22 10:59 30 mls/hr .Q24H LUCIO Administration PFSH Anesthesia Medical History Anxiety and depression Environmental and seasonal allergies GERD (gastroesophageal reflux disease) History of CVA (cerebrovascular accident) Hypertension Stroke-like symptoms Surgical History History of spinal fusion S/P appendectomy S/P cholecystectomy Family History Mother Thyroid disease Cancer Social History Smoking and tobacco status: current every day smoker Quit status (tobacco): not considering quitting Second hand smoke exposure: No Smoking risk assessment/counseling performed?: Yes Alcohol intake: never Desire information about alcohol rehabilitation?: No Counseling given: No Desire information about substance/drug rehabilitation?: No Counseling given: No Data Anesthesia Cardiac Studies: Echocardiogram 01/06/22
[2022-12-01 12:48] VITALS: BP 120/71; PULSE 90; RESP 16; TEMP 36.3; O2SAT 97
[2022-12-01 13:10] VITALS: BP 120/72; PULSE 74; RESP 18; O2SAT 95
== END 2022-12-01 13:23 | disposition home or self-care (01) ==
PROVIDERS: PCP Nurse Practitioner; Visit Provider Internal Medicine Cardiovascular Disease
PROC: (CPT 93312; principal; 2022-12-01 12:00)
DX: I63.9 Cerebral infarction, unspecified (principal); I08.1 Rheumatic disorders of both mitral and tricuspid valves; I10 Essential (primary) hypertension; K21.9 Gastro-esophageal reflux disease without esophagitis; E66.01 Morbid (severe) obesity due to excess calories; Z68.33 Body mass index [BMI] 33.0-33.9, adult; F41.9 Anxiety disorder, unspecified; F32.A Depression, unspecified; F17.200 Nicotine dependence, unspecified, uncomplicated; E78.5 Hyperlipidemia, unspecified; I25.10 Atherosclerotic heart disease of native coronary artery without angina pectoris
CPT/HCPCS: 93312; 93320; 93325; J2704; J7030

== ENCOUNTER → 2023-03-08 16:33 | Outpatient (BNVA) | payer BC, MEDICAID, SELFPAY | PROVIDERS: PCP Nurse Practitioner; Visit Provider Nurse Practitioner | DX: R19.7 Diarrhea, unspecified (principal) | CPT/HCPCS: 87177; 87209; 87493; 87506 ==

== ENCOUNTER 2023-04-10 06:40 | Outpatient (CLI) | payer BC, MEDICAID, SELFPAY ==
--- NOTE | 2023-04-10 06:47 | ECG_ITS ---
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 Interpretive Statements NAME OF STUDY: LEXISCAN SESTAMIBI STRESS TEST INDICATION: WORSENING ANGINA/VENEGAS PROCEDURE: At the baseline, the blood pressure was 143/92 mm Hg with a heart rate of 65 bpm. The electrocardiogram showed sinus rhythm, normal axis with non specific T wave changes. ??? The Lexiscan was infused over a period of 20 seconds. A total of 0.4 milligrams of Lexiscan was infused. The stress phase was continued for a total of 5 minutes. Heart rate at the end of the stress phase was 88 bpm with a blood pressure of 138/74 mm Hg. The EKG at the peak infusion revealed no significant ST and T wave changes. ??? Sestamibi was injected 20 seconds after the Lexiscan infusion. ??? Blood pressure at the end of the recovery phase was 126/74 mm Hg with a heart rate of 84 beats per minute. ??? CONCLUSION: 1. No significant EKG changes with the LexiScan infusion. 2. No LexiScan induced chest pain or cardiac arrhythmia. 3. Normal blood pressure and heart rate response. 4. Sestamibi/sestamibi perfusion scan pending; see separate report. Electronically Signed On 04-11-2023 20:58:00 CDT by Jennifer Shannon M.D. [email or web address] Foodsmercy health st[facility].[employer] Services/store/[id number]
--- NOTE | 2023-04-10 06:48 | NMCV_ITS ---
NM shanita perf SPECT r/s* [id number] Herlinda Israel Age: 52 Gender: F : 1970 Exam Date: 04/10/2023 07:44 Ordering Phys: Fern Cerda Technologist: RAYO Campuzano Exam Location: [facility] Indications: HYPERTENSION, ANGINA PECTORIS, CEREBRAL INFARCTION STRESS TEST Please see separate stress test report in [facility] for full findings IMAGE PROTOCOL Rest/Stress 1 Lexiscan Day Radiopharmaceutical Dose (mCi) Administration Site Administered by Rest: Tc-99m 10.6 IV RAYO Mccrary Sestamibi Stress:Tc-99m 32.8 IV RAYO Campuzano Sestamidave Rest: 04/10/2023 60 Discovery 630 Stress: 04/10/2023 30 Discovery 630 0.4mg Lexiscan. Images obtained in supine and prone position. SPECT RESULTS Technical Quality: Excellent Raw Data Analysis: Normal Image Corrections: No attenuation or motion correction applied Summed Stress Score: 2 Summed Rest Score: 0 Summed Difference Score: 2 PERFUSION FINDINGS SPECT images demonstrate homogeneous tracer distribution throughout the myocardium. FUNCTIONAL RESULTS (calculated via Gated SPECT) Stress Image LV EF (%): 73 Stress EDV (mL):88 TID: 0.96 Stress ESV (mL):24 FUNCTIONAL FINDINGS: The left ventricle is normal in size. Transient Ischemia Dilatation of 0.96 The left ventricular ejection fraction is normal with a value of 73%. There is normal left ventricular wall thickening. Normal end diastolic and end systolic volumes. IMPRESSIONS 1. Myocardial perfusion imaging is normal. 2. Overall left ventricular systolic function is normal without regional wall motion abnormalities, LVEF=73%. 3. No EKG changes with lexiscan infusion. 4. Scan indicates low risk for cardiac events. Jennifer Shannon MD (Electronically Signed) Final Date: 11 April 2023 20:53 S
[2023-04-10 06:49] VITALS: BMI 32.9
[2023-04-10] MEDS: regadenoson 0.4 Mg/5 ml Syringe IVP (08:16)
[2023-04-10 08:29] VITALS: BP 126/74; PULSE 90
== END 2023-04-10 06:41 | disposition home or self-care (01) ==
LOC: CDL 06:40
PROVIDERS: PCP Nurse Practitioner; Visit Provider Nurse Practitioner Family
DX: I20.9 Angina pectoris, unspecified (principal); R06.00 Dyspnea, unspecified; I10 Essential (primary) hypertension; I63.9 Cerebral infarction, unspecified
CPT/HCPCS: 36415; 78452; 93017; 96374; A9500; J2785

== ENCOUNTER → 2023-05-14 14:06 | Outpatient (BNVA) | payer BC, MEDICAID, SELFPAY | PROVIDERS: PCP Nurse Practitioner; Visit Provider Nurse Practitioner | DX: J32.9 Chronic sinusitis, unspecified (principal) | CPT/HCPCS: 87400; 87426 ==

== ENCOUNTER 2023-10-23 08:44 | Outpatient (CLI) | payer BC, MEDICAID, SELFPAY ==
--- NOTE | 2023-10-23 09:30 | USCV_ITS ---
Herlinda Israel Age: 53 Gender: F : 1970 Exam Date: 10/23/2023 08:54 Ordering Phys: Mark Camarena MD (Andy) ([email or web address] [place]) Technologist: JIA Exam Location: [facility] [place] Indication: RECHECK ON CCA STENOSIS. Risk Factors: SMOKER 30 YEARS. WAS 3 PACK A DAY SMOKER NOW DOWN TO 1/2 PACK A DAY Previous Vascular Surgery: NONE Right Brachial BP: / Left Brachial BP: / Right Left Velocity (cm/s) Spectral Plaque Velocity (cm/s) Spectral Plaque Syst/Diast Broadening Syst/Diast Broadening 93.20/ 29.70 Prox CCA 91.80 / 30.50 90.60/ 38.70 Mid CCA 71.80 / 28.00 76.30/ 20.60 Hetro Distal CCA 81.90 / 17.70 Hetro 64.50/ 18.80 Hetro Prox ICA 64.90 / 14.80 Hetro 58.30/ 18.20 Mid ICA 76.20 / 30.40 66.60/ 24.90 Distal ICA 89.50 / 39.90 88.10 Hetro ECA 75.90 Hetro 0.90 ICA/CCA 1.10 Antegrade Vertebral Antegrade 37.00/ 15.60 cm/s 30.30/ 13.70 cm/s Tri Subclavian Tri 124.9 83.00 0 FINDINGS Moderate heterogenous irregular plaques of the right bifurcation and proximal internal carotid artery Mild to moderate plaqueat the left bifurcation and proximal ICA Antegrade flow in the vertebral arteries bilaterally. Normal Doppler flow velocities in the external carotid, vertebral and subclavian arteries bilaterally CONCLUSIONS Moderate heterogenous irregular plaques of the right bifurcation and proximal internal carotid artery, suggesting less than 50% stenosis. Mild to moderate plaqueat the left bifurcation and proximal internal carotid artery, suggesting less than 50% stenosis Dr Lyssa Faust MD [facility] (Electronically Signed) Final Date: 24 October 2023 09:27 S
--- NOTE | 2023-10-23 10:00 | USCV_ITS ---
Herlinda Israel Age: 53 Gender: F : 1970 Exam Date: 10/23/2023 14:55 Ordering Phys: Mark Camarena MD (Andy) Technologist: Exam Location: Indication: PAIN IN LEGS Risk Factors: SMOKER Previous Vascular Surgery: NONE RIGHT LEFT BP: 154.0 / 105.00 BP: 168.0/ 100.00 0 0 Waveform Velocity (cm/s) Velocity (cm/s) Waveform Triphasic 141.0 Iliac Prox 157.0 Triphasic Triphasic 89.0 Iliac Mid 125.0 Triphasic Triphasic 78.0 Iliac Distal 83.0 Triphasic Triphasic 102.0 SKEINS YARN EXAMINER 106.0 Triphasic Triphasic 114.0 SFA Prox 120.0 Triphasic Triphasic 105.0 SFA Mid 114.0 Triphasic Triphasic SFA Dist Triphasic 97.0 79.0 Triphasic 96.0 POP 71.0 Biphasic Triphasic 63.0 POPCORN ATTENDANT 110.0 Biphasic Triphasic 41.0 DPA 46.0 Biphasic 0.9 LASHAWN 0.9 FINDINGS RT DPA 150 RT POPCORN ATTENDANT 140 LT POPCORN ATTENDANT 140 LT DPA 160 Resting LASHAWN 0.9 bilaterally Normal arterial Doppler waveforms and velocities CONCLUSIONS 1. Near normal resting ABIs bilaterally 2. Normal arterial Doppler waveforms and velocities 3. Features suggesting no significant arterial obstruction, based on the above findings Dr Lyssa Faust MD [facility] (Electronically Signed) Final Date: 24 October 2023 12:45 S
== END 2023-10-23 08:45 | disposition home or self-care (01) ==
LOC: RAD 08:45
PROVIDERS: PCP Nurse Practitioner; Visit Provider Thoracic Surgery (Cardiothoracic Vascular Surgery)
DX: I65.23 Occlusion and stenosis of bilateral carotid arteries (principal); M79.604 Pain in right leg; M79.605 Pain in left leg
CPT/HCPCS: 93880; 93925

== ENCOUNTER → 2024-08-28 10:31 | Outpatient (BNVA) | payer BC, MEDICAID, SELFPAY | PROVIDERS: PCP Nurse Practitioner Family; Visit Provider Nurse Practitioner Family | DX: J06.9 Acute upper respiratory infection, unspecified (principal); R05.9 Cough, unspecified | CPT/HCPCS: 87400; 87426 ==

== ENCOUNTER → 2024-11-19 11:57 | Outpatient (BNVA) | payer BC, MEDICAID, SELFPAY | PROVIDERS: PCP Nurse Practitioner Family; Visit Provider Nurse Practitioner Family | DX: E67.3 Hypervitaminosis D (principal); W57.XXXA Bitten or stung by nonvenomous insect and other nonvenomous arthropods, initial encounter; Z79.899 Other long term (current) drug therapy; M25.50 Pain in unspecified joint; K52.9 Noninfective gastroenteritis and colitis, unspecified | CPT/HCPCS: 80053; 80061; 81003; 82306; 83036; 84443; 85025; 85651; 86140 ==

== ENCOUNTER → 2024-11-20 14:35 | Outpatient (BNVA) | payer BC, MEDICAID, SELFPAY | PROVIDERS: PCP Nurse Practitioner Family; Visit Provider Nurse Practitioner Family | DX: K52.9 Noninfective gastroenteritis and colitis, unspecified (principal) | CPT/HCPCS: 87045; 87177; 87209; 87427; 87449 ==

== ENCOUNTER 2025-02-09 11:02 | Emergency (ER) | payer OTHER, SELFPAY ==
[2025-02-09 11:10] VITALS: BP 178/102; PULSE 73; RESP 17; TEMP 36.7; O2SAT 96; BMI 27.7
--- NOTE | 2025-02-09 11:18 | ECG_ITS ---
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 Measurements Intervals Carmi Rate: 66 P: 85 VA: 151 QRS: 83 QRSD: 90 T: 70 QT: 388 QTc: 408 Interpretive Statements SINUS RHYTHM WITH SINUS ARRHYTHMIA LOW QRS VOLTAGE IN PRECORDIAL LEADS [QRS DEFLECTION < 1.0 mV IN CHEST LEADS] POSSIBLE RIGHT VENTRICULAR CONDUCTION DELAY [RSR (QR) IN V1/V2] Compared to ECG 09/15/2022 13:41:50 Sinus bradycardia no longer present Electronically Signed On 02-09-2025 21:57:22 CDT by Lyssa Faust M.D. [email or web address]
== END 2025-02-09 12:45 | disposition left against medical advice (07) ==
PROVIDERS: Emergency Provider Family Medicine; PCP Nurse Practitioner Family
DX: I49.8 Other specified cardiac arrhythmias (principal); R94.31 Abnormal electrocardiogram [ECG] [EKG]; Z53.21 Procedure and treatment not carried out due to patient leaving prior to being seen by health care provider
CPT/HCPCS: 93005

== ENCOUNTER → 2025-02-26 14:19 | Outpatient (BNVA) | payer OTHER, SELFPAY | PROVIDERS: PCP Nurse Practitioner Family; Visit Provider Nurse Practitioner Family | DX: M47.816 Spondylosis without myelopathy or radiculopathy, lumbar region (principal); Z98.1 Arthrodesis status | CPT/HCPCS: 72114 ==